=== PATIENT | female | born 1975 | race Hispanic/Latino ===

== ENCOUNTER 2020-09-05 07:25 | Outpatient (CLI) | payer BC, SELFPAY ==
--- NOTE | ~2020-09-05 | MM_ITS ---
EXAMINATION: MM screening [facility] BI w pete HISTORY: Screening TECHNIQUE: Craniocaudal and mediolateral oblique 3-D tomosynthesis images were obtained and synthetic 2-D images were generated. CAD analysis was submitted and interpreted. COMPARISON: Comparison to multiple prior studies sequentially, with oldest reviewed study dated 05/22. BREAST PARENCHYMAL COMPOSITION: Breast composed of scattered areas of fibroglandular density. FINDINGS: There is no evidence of suspicious mass, calcification, or architectural distortion to sugg est malignancy in either breast. There has been no suspicious interval change. IMPRESSION: 1. No mammographic evidence of malignancy. 2. Recommend routine screening mammography in one year. BI-RADS Category 1: Negative Reviewed, dictated and finalized at location A. SANDER
== END 2020-09-05 07:26 | disposition home or self-care (01) ==
LOC: ANHIMG 07:30
PROVIDERS: PCP Physician Assistant; Visit Provider Obstetrics & Gynecology
DX: Z12.31 Encounter for screening mammogram for malignant neoplasm of breast (principal)
CPT/HCPCS: 77063; 77067

== ENCOUNTER 2021-11-18 09:29 | Outpatient (CLI) | payer BC, SELFPAY ==
--- NOTE | ~2021-11-18 | MM_ITS ---
EXAMINATION: MM screening [facility] BI w pete HISTORY: Screening mammogram TECHNIQUE: Craniocaudal and mediolateral oblique 3-D tomosynthesis images were obtained and synthetic 2-D images were generated. CAD analysis was submitted and interpreted. COMPARISON: 09/05/2020, 08/20/2019, 07/17/2018 BREAST PARENCHYMAL COMPOSITION: There are scattered areas of fibroglandular density. FINDINGS: There is no suspicious mass, calcification, or architectural distortion to suggest malignan cy in either breast. There has been no suspicious interval change. IMPRESSION: 1. No mammographic evidence of malignancy. 2. Recommend routine screening mammography in one year. BI-RADS Category 1: Negative Reviewed, dictated and finalized at location A.
== END 2021-11-18 09:30 | disposition home or self-care (01) ==
LOC: ANHIMG 09:32
PROVIDERS: PCP Physician Assistant; Visit Provider Obstetrics & Gynecology
DX: Z12.31 Encounter for screening mammogram for malignant neoplasm of breast (principal)
CPT/HCPCS: 77063; 77067

== ENCOUNTER 2022-03-10 01:13 | Day surgery (SDC) | payer BC, SELFPAY ==
[2021-11-24 15:54] VITALS: BMI 24.0
[2022-03-10 08:21] VITALS: BP 114/58; PULSE 72; RESP 16; TEMP 36.4; O2SAT 100; BMI 23.0
[2022-03-10] MEDS: LACTATED RINGERS 1,000 ML 150 ML IV CONT (08:31)
--- NOTE | 2022-03-10 08:52 | PM.HPGS ---
History of Present Illness History of Present Illness Consent: Risks, benefits, and alternatives have been discussed and questions answered. Patient agrees to proceed with procedure. Chief complaint: neoplasm screening Narrative: Cee Stevens is a 47 year old female here for first screening colonoscopy Review of Systems Constitutional: Constitutional: Denies headache(s) and Denies weakness Eyes: Eyes: Denies blurry vision ENT: Reports Normal hearing present, Denies headache(s) and Denies neck pain Cardiovascular: Cardiovascular: Denies chest pain and Denies dyspnea Respiratory: Respiratory: Denies dyspnea Gastrointestinal: Gastrointestinal: Reports no additional gastrointestinal complaints Genitourinary: Genitourinary: Denies dysuria Musculoskeletal: Musculoskeletal: Denies neck pain Integumentary/Breasts: Skin/Breast: Denies dry skin Neurologic: Reports Normal hearing present, Denies headache(s) and Denies weakness Psychiatric: Psychiatric: Denies anxiety Endocrine: Endocrine: Denies change in body appearance Hematologic/Lymphatic: Hematologic/Lymphatic: Denies easy bleeding Allergic/Immunologic: Allergic/Immunologic: Denies urticaria PMF Past Medical History Medical History (Updated 03/10/22 @ 08:52 by Misael Cisneros MD) Asthma Colon cancer screening Liver mass Menopausal symptoms Vaginal delivery Vaginal discharge Surgical History Surgical History History of liver biopsy History of tubal ligation Previous section Family History Family History Mother Hypertension Family history of elevated blood lipids Father Family history of diabetes mellitus in first degree relative Family history of malignant neoplasm Grandparent Family history of coronary artery disease Social History Social History Smoking status: Never smoker Second hand tobacco smoke exposure: No Alcohol intake: never Substance use: never Substance use type: does not use Living arrangements: with family Spiritual care concerns: No Meds Home Medications and Allergies Home Medications Medication Instructions Recorded Confirmed Type albuterol sulfate 90 mcg/actuation 1 puff inhalation Q4H PRN 09/16/21 03/10/22 History aerosol inhaler Shortness Of Breath budesonide-formoterol HFA 80 2 puff inhalation Q12H 09/16/21 03/10/22 History mcg-4.5 mcg/actuation aerosol inhaler omeprazole 20 mg capsule,delayed 20 mg PO DAILY 11/24/21 03/10/22 History release Allergies Allergy/AdvReac Type Severity Reaction Status Date / Time No Known Allergies Allergy Mild Verified 03/10/22 08:20 Vital Signs Vital Signs - 24 hr 03/10/22 08:21 Temperature 97.6 F Pulse Rate 72 Respiratory Rate 16 Blood Pressure 114/58 L Pulse Oximetry 100 Oxygen Delivery Room Air Exam Const: General: comfortable and no acute distress HENMT: General nose exam: Normal nares present Eyes: General: appearance normal, both eyes and all related structures Neck: Neck: no JVD Resp: Auscultation: clear to auscultation bilaterally Cardio: Rate: regular rate Rhythm: regular rhythm GI: Inspection: non-distended GI Palp: Yes Soft to palpation Skin: General skin exam: normal color Neuro: General: gait normal Speech: normal speech Extrem: General: normal to inspection Psych: Mental Status: mental status grossly normal Assessment and Plan Assessment and plan (1) Colon cancer screening: Code(s): Z12.11 - Encounter for screening for malignant neoplasm of colon Status: Acute Assessment and Plan: colonoscopy
--- NOTE | 2022-03-10 08:52 | WPDANESEPPF ---
Anes - Initial Pre Proc Eval Procedure: Operation Date: 03/10/22 09:45 Proposed Procedures p Screening Colonoscopy - Misael Cisneros MD Date/Time: 03/10/22 08:52 Surgeon: Misael Cisneros MD Pre Op Diagnosis: neoplasm screening Patient Data Age: 47 Gender: F Height: 1.55 m Weight: 55.3 kg Last Vital Signs Temp 97.6 F 03/10/22 08:21 Pulse 72 03/10/22 08:21 Resp 16 03/10/22 08:21 BP 114/58 L 03/10/22 08:21 Pulse Ox 100 03/10/22 08:21 O2 Del Method Room Air 03/10/22 08:21 Allergies Allergy/AdvReac Type Severity Reaction Status Date / Time No Known Allergies Allergy Mild Verified 03/10/22 08:20 Home Medications Medication Instructions Recorded Confirmed Type albuterol sulfate 90 mcg/actuation 1 puff inhalation Q4H PRN 09/16/21 03/10/22 History aerosol inhaler Shortness Of Breath budesonide-formoterol HFA 80 2 puff inhalation Q12H 09/16/21 03/10/22 History mcg-4.5 mcg/actuation aerosol inhaler omeprazole 20 mg capsule,delayed 20 mg PO DAILY 11/24/21 03/10/22 History release Patient hx anesthesia problems: none Family hx anesthesia problems: none Results Review: All pre-operative results and documents have been reviewed as part of the pre-operative evaluation. [facility] Past Medical History Medical History (Updated 03/10/22 @ 08:52 by Misael Cisneros MD) Asthma Colon cancer screening Liver mass Menopausal symptoms Vaginal delivery Vaginal discharge Surgical History Surgical History History of liver biopsy History of tubal ligation Previous section Family History Family History Mother Hypertension Family history of elevated blood lipids Father Family history of diabetes mellitus in first degree relative Family history of malignant neoplasm Grandparent Family history of coronary artery disease Social History Social History Smoking status: Never smoker Second hand tobacco smoke exposure: No Alcohol intake: never Substance use: never Substance use type: does not use Living arrangements: with family Spiritual care concerns: No Anes - Eval Final PreProcedure Day of Procedure 03/10/22 08:52 Patient weight: normal Heart: regular rate and rhythm Lungs: clear to auscultation Airway: Mallampati scale class II Neurological: alert and oriented Last oral intake: >/= 8 hours ASA classification: II Emergent: no Anesthetic plan: proceed Anesthesia type and monitoring: general GIVS and standard monitoring Results Review: All pre-operative results and documents have been reviewed as part of the pre-operative evaluation. Informed Consent: The patient's anesthetic plan and its attendant risks and benefits were discussed with the patient/family/POA. Questions were solicited and answers provided to the satisfaction of the patient/family/POA.
[2022-03-10 09:17] VITALS: BP 83/48; PULSE 68; RESP 18; O2SAT 98
[2022-03-10 09:27] VITALS: BP 91/57; PULSE 65; RESP 18; O2SAT 100
[2022-03-10 09:37] VITALS: BP 105/67; PULSE 59; RESP 17; O2SAT 99
== END 2022-03-10 09:45 | disposition home or self-care (01) ==
PROVIDERS: PCP Physician Assistant; Visit Provider Internal Medicine Gastroenterology
PROC: 0DJD8ZZ Inspection of Lower Intestinal Tract, Via Natural or Artificial Opening Endoscopic (ICD-10-PCS; CPT 45378; principal; 2022-03-10 09:45)
DX: Z12.11 Encounter for screening for malignant neoplasm of colon (principal); K64.8 Other hemorrhoids; Z79.51 Long term (current) use of inhaled steroids; J45.909 Unspecified asthma, uncomplicated
CPT/HCPCS: 45378; J2704; J7120

== ENCOUNTER 2022-07-12 16:17 | Outpatient (CLI) | payer BC, SELFPAY ==
--- NOTE | ~2022-07-12 | US_ITS ---
EXAMINATION: US pelvic complete w TV DATE: 07/12/2022 17:10 INDICATION: Left lower quadrant pain Comparison:Ultrasound dated 01/31/2016 TECHNIQUE: Multiple transabdominal and endovaginal sonographic images of the pelvis performed. FINDINGS: The uterus measures 5.1 x 2.3 x 3.8 cm. The endometrial complex measures 3 mm. The right ovary measures 1.9 x 0.8 x 0.9 cm and the left ovary measures 1.9 x 0.8 x 0.9 cm. There ar e small follicles in each ovary. Normal doppler signal in both ovaries. There is no free fluid in the pelvis. There are no abnormal masses seen on either side. IMPRESSION: 1. Unremarkable pelvic ultrasound. Reviewed, dictated and finalized at location B. PULLER
== END 2022-07-12 16:18 | disposition home or self-care (01) ==
LOC: ANHIMG 16:20
PROVIDERS: PCP Physician Assistant; Visit Provider Obstetrics & Gynecology
DX: R10.32 Left lower quadrant pain (principal)
CPT/HCPCS: 76830; 76856

== ENCOUNTER 2023-01-05 15:53 | Outpatient (CLI) | payer BC, SELFPAY ==
--- NOTE | ~2023-01-05 | MM_ITS ---
EXAMINATION: MM screening [facility] BI w pete HISTORY: Screening mammogram TECHNIQUE: Craniocaudal and mediolateral oblique 3-D tomosynthesis images were obtained and synthetic 2-D images were generated. CAD analysis was submitted and interpreted. COMPARISON: 11/18/2021, 09/05/2020, 08/20/2019 BREAST PARENCHYMAL COMPOSITION: There are scattered areas of fibroglandular density. FINDINGS: No suspicious mass, calcification, or architectural distortion are identified in either [place] ast to suggest malignancy. There has been no suspicious interval change. IMPRESSION: 1. No mammographic evidence of malignancy. 2. Recommend routine screening mammography in one year. BI-RADS Category 1: Negative Reviewed, dictated and finalized at location A.
== END 2023-01-05 15:54 | disposition home or self-care (01) ==
LOC: ANHIMG 15:56
PROVIDERS: PCP Physician Assistant; Visit Provider Obstetrics & Gynecology
DX: Z12.31 Encounter for screening mammogram for malignant neoplasm of breast (principal)
CPT/HCPCS: 77063; 77067

== ENCOUNTER 2024-02-07 16:07 | Outpatient (CLI) | payer BC, SELFPAY ==
--- NOTE | ~2024-02-07 | MM_ITS ---
EXAMINATION: MM screening [facility] BI w pete HISTORY: Screening TECHNIQUE: Craniocaudal and mediolateral oblique 3-D tomosynthesis images were obtained and synthetic 2-D images were generated. CAD analysis was submitted and interpreted. COMPARISON: Comparison to multiple prior studies sequentially, with oldest reviewed study dated 06/23. BREAST PARENCHYMAL COMPOSITION: Not dense: There are scattered areas of fibroglandular density. FINDINGS: There is no evidence of suspicious mass, calcification, or architectural distortion to sugg est malignancy in either breast. There has been no suspicious interval change. IMPRESSION: 1. No mammographic evidence of malignancy. 2. Recommend routine screening mammography in one year. BI-RADS Category 1: Negative Reviewed, dictated and finalized at location B.
== END 2024-02-07 16:08 | disposition home or self-care (01) ==
LOC: ANHIMG 16:09
PROVIDERS: PCP Physician Assistant; Visit Provider Obstetrics & Gynecology
DX: Z12.31 Encounter for screening mammogram for malignant neoplasm of breast (principal)
CPT/HCPCS: 77063; 77067

== ENCOUNTER 2024-03-11 12:47 | Emergency (ER) | payer BC, SELFPAY ==
[2024-03-11 12:48] VITALS: BP 138/72; PULSE 61; RESP 18; TEMP 36.4; O2SAT 100
[2024-03-11 12:54] VITALS: RESP 18; O2SAT 100
[2024-03-11 12:58] VITALS: BP 150/88; PULSE 62; RESP 18; O2SAT 100
--- NOTE | 2024-03-11 13:15 | ED.GENADULT ---
HPI - General Adult General Chief complaint: Environmental Exposure Stated complaint: inhlaed bleach while cleaning Time Seen by Provider: 03/11/24 12:51 History of Present Illness HPI narrative: Patient is a 49-year-old female who presents ER with concerns about bleach exposure. 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 It caused her eyes to feel foggy and burned her nostrils and back of her throat. No ingestion of the mixture. Patient has history of asthma. No wheezing. No dyspnea at this time. Related Data Home Medications Medication Instructions Recorded Confirmed albuterol sulfate 90 mcg/actuation 1 puff inhalation Q4H PRN 09/16/21 03/10/22 aerosol inhaler Shortness Of Breath budesonide-formoterol HFA 80 2 puff inhalation Q12H 09/16/21 03/10/22 mcg-4.5 mcg/actuation aerosol inhaler omeprazole 20 mg capsule,delayed 20 mg PO DAILY 11/24/21 03/10/22 release Allergies Allergy/AdvReac Type Severity Reaction Status Date / Time No Known Allergies Allergy Mild Verified 03/11/24 12:59 Review of Systems Review of Systems: All systems reviewed & are unremarkable except as noted in HPI and below Constitutional: Constitutional: Reports no additional constitutional complaints ENT: Reports system reviewed and no additional complaints, except as documented Cardiovascular: Cardiovascular: Reports no additional cardiovascular complaints Respiratory: Respiratory: Reports no additional respiratory complaints [facility] Past Medical History Medical History Asthma Colon cancer screening Liver mass Menopausal symptoms Vaginal delivery Vaginal discharge Surgical History Surgical History History of liver biopsy History of tubal ligation Previous section Family History Family History Mother Hypertension Family history of elevated blood lipids Father Family history of diabetes mellitus in first degree relative Family history of malignant neoplasm Grandparent Family history of coronary artery disease Social History Social History Smoking status: Never smoker Second hand tobacco smoke exposure: No Alcohol intake: never Substance use: never Substance use type: does not use Do You Feel Safe in your Home?: Yes Lack of Transportation: No Lack of Food: Never True Current Housing: I Have Housing Concerned About Future Housing: No Difficulty Paying Gas/Electric Bills: No Difficulty Paying for Meds: No Currently Unemployed: No Education: High School Diploma/GED Difficulty w/ Childcare or Family Care: No Living arrangements: with family Spiritual care concerns: No Exam Narrative: GENERAL: Well-appearing, well-nourished, and in no acute distress. HEAD: Normocephalic, atraumatic. ENT: Mucous membranes moist. Normal nose. Normal posterior oropharynx. CHEST: Clear to auscultation. No respiratory distress. HEART: Regular rate and rhythm. Normal peripheral pulses. EXTREMITIES: Normal range of motion. No edema. SKIN: Warm, dry, no rash. NEURO: No focal deficits. Alert and oriented x3. PSYCH: Normal mood and affect. Course Course Emergency Course: Patient given reassurance. She seems to have a fair amount of anxiety about the situation. No wheezing or cough to indicate chemical pneumonitis. Vital Signs Vital signs: Vital Signs Temperature 97.6 F 03/11/24 12:48 Pulse Rate 61 03/11/24 12:48 Respiratory Rate 18 03/11/24 12:48 Blood Pressure 138/72 03/11/24 12:48 Pulse Oximetry 100 03/11/24 12:48 Oxygen Delivery Room Air 03/11/24 12:48 Temperature 97.6 F 03/11/24 12:48 Pulse Rate 62 03/11/24 12:58 Respiratory Rate 18 03/11/24 12:58 Blood Pr
[2024-03-11 13:42] VITALS: BP 113/89; PULSE 62; RESP 18; O2SAT 100
== END 2024-03-11 13:44 | disposition home or self-care (01) ==
LOC: ANHED 13:32
PROVIDERS: Emergency Provider Emergency Medicine; PCP Physician Assistant
DX: T54.91XA Toxic effect of unspecified corrosive substance, accidental (unintentional), initial encounter (principal); F41.9 Anxiety disorder, unspecified; J45.909 Unspecified asthma, uncomplicated
CPT/HCPCS: 99281

== ENCOUNTER 2024-11-15 09:54 | Emergency (ER) | payer BC, SELFPAY ==
[2024-11-15] VITALS (10 sets, daily range): BP systolic 103–152; BP diastolic 49–101; PULSE 54–70; RESP 10–20; TEMP 36.2; O2SAT 97–100
--- NOTE | ~2024-11-15 | XR_ITS ---
EXAMINATION: XR chest 2V 11/15/2024 11:28 INDICATION: Chest pain PROCEDURE: 2 view chest COMPARISON: Comparison to multiple prior studies sequentially, with oldest reviewed study dated 01/2012. FINDINGS: The lungs are clear. The cardiomediastinal silhouette is within normal limits. There are no pleural effusions. There is no pneumothorax suspected. IMPRESSION: 1: NO ACUTE CARDIOPULMONARY DISEASE. Reviewed, dictated and finalized at location A.
--- NOTE | 2024-11-15 09:55 | ECG_ITS ---
Test Date: 2024-11-15 10:03:10 Measurements Intervals [place] Rate: 57 P: 53 NV: 144 QRS: -15 QRSD: 94 T: 28 QT: 422 QTc: 411 Interpretive Statements SINUS BRADYCARDIA No previous ECG available for comparison Electronically Signed On 11-15-2024 11:48:25 CDT by Saleem Nuno M.D.
[2024-11-15 10:21] LABS: Basophils Absolute Auto 0.1 K/mm3 (0.0-0.1); Basophils Percent Auto 0.6 % (0.2-1.2); Eosinophils Absolute Auto 0.1 K/mm3 (0-0.3); Eosinophils Percent Auto 1.7 % (0-4.4); Hematocrit 46.6 % (37.0-47.0); Hemoglobin 15.2 g/dL (12.0-15.0); Immature Granulocyte Absolute 0.02 K/mm3 (0.00-0.031); Immature Granulocyte Percent A 0.2 % (0-0.5); Lymphocytes Absolute Auto 3.23 K/mm3 (0.9-3.2); Lymphocytes Percent Auto 38.9 % (18.3-44.2); Mean Corpuscular HGB Conc 32.6 g/dl (32-36); Mean Corpuscular Hemoglobin 29.5 pg (26-34); Mean Corpuscular Volume 90.3 fl (80-100); Mean Platelet Volume 11.1 fl (7.4-10.4); Monocytes Absolute Auto 0.4 K/mm3 (0.1-0.6); Monocytes Percent Auto 5.2 % (2.6-8.5); Neutrophils Absolute Auto 4.4 K/mm3 (1.3-6.7); Neutrophils Percent Auto 53.4 % (45.5-73.1); Platelet Count Result 280 k/mm3 (150-375); Red Blood Count 5.16 M/mm3 (4.2-5.4); Red Cell Distribution Width 12.2 % (11.5-14.5); White Blood Count 8.3 K/mm3 (4.5-10.0)
[2024-11-15 10:31] LABS: Alanine Aminotransferase 28 U/L (6-35); Albumin Level 5.2 g/dL (3.5-5.1); Alkaline Phosphatase 126 U/L (38-126); Anion Gap 14 mmol/L (4-12); Aspartate Amino Transferase 35 U/L (14-36); Blood Urea Nitrogen 13 mg/dL (7-17); Calcium 9.8 mg/dL (8.4-10.2); Carbon Dioxide 27 mmol/L (22-30); Chloride 101 mmol/L (98-107); Estimated CRCL calculation 57 ml/min; Estimated Glomerular Filt Rate > 60; Glucose 97 mg/dL (65-110); Lipase 129 U/L (23-300); Potassium 3.6 mmol/L (3.4-5.0); Sodium 142 mmol/L (137-145)
[2024-11-15 10:33] LABS: Partial Thromboplastin Time 27.8 Seconds (22.3-36.8)
[2024-11-15] MEDS: ASPIRIN 81 MG CHEWABLE TABLET 324 MG PO (10:38)
[2024-11-15 10:42] LABS: Troponin I < 0.012 ng/mL (0.000-0.034)
--- OUTSIDE RECORDS SUMMARY | 2024-11-15 10:54 | XMS_ITS | Clinical Summary ---
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 Name Role Phone Leonie Moreno Primary Care Provider [phone] Julio César Ribeiro MD Unavailable [phone] Allergies Active Allergy Reactions Criticality Noted Date Comments Propofol Other (See comments) Low 06/26/2019 Hard to awaken after anesthesia/nausea Medications famotidine (PEPCID) 20 mg tablet Take 1 tablet (20 mg total) by mouth 2 (two) times a day Active albuterol HFA (PROVENTIL HFA,VENTOLIN HFA,PROAIR HFA) 90 mcg/actuation inhaler INHALE 2 PUFFS BY MOUTH EVERY 6 HOURS NEEDED FOR WHEEZING OR SHORTNESS OF BREATH 54 g 1 4 Active omeprazole (PriLOSEC) 40 mg capsule TAKE 1 CAPSULE(40 MG) BY MOUTH DAILY 90 capsule 1 4 Active rosuvastatin (CRESTOR) 10 mg tabletIndications: Mixed hyperlipidemia Take 1 tablet (10 mg total) by mouth daily 90 tablet 5 01/17/20 25 Active Active Problems Problem Noted Date Diagnosed Date Cigarette smoker 02/06/2024 Assessment & Plan (02/06/2024 1:01 PM CDT): Encouraged complete cessation and even socially. Fatigue 02/06/2024 Assessment & Plan (02/06/2024 1:03 PM CDT): Probably multifactorial. Check labs and followup to re-evaluate Other acne 06/11/2023 Assessment & Plan (06/11/2023 12:15 AM CDT): Persistent acne that may be a secondary infection at this point. Will send doxy Encouraged to stop picking at the area If symptoms worsen may consider starting topical BMI 24.0-24.9, adult 06/11/2023 Assessment & Plan (02/06/2024 1:01 PM CDT): Weight/BMI is in healthy range. Continue healthy lifestyle to maintain. Assessment & Plan (06/11/2023 12:17 AM CDT): Weight/BMI is in healthy range. Continue healthy lifestyle to maintain. Diabetes mellitus screening 01/02/2023 Assessment & Plan (02/06/2024 1:01 PM CDT): Check labs Assessment & Plan (01/02/2023 9:46 PM CDT): Check labs Mixed hyperlipidemia 06/17/2022 Assessment & Plan (02/06/2024 1:01 PM CDT): Encouraged patient to follow low fat/low chol diet like the Mediterranean diet. Increase good fats in the diet. Increase exercise. Monitor labs as needed. Assessment & Plan (06/11/2023 12:14 AM CDT): Encouraged patient to follow low fat/low chol diet like the Mediterranean diet. Increase good fats in the diet. Increase exercise. Monitor labs as needed. Assessment & Plan (01/02/2023 9:45 PM CDT): Encouraged patient to follow low fat/low chol diet like the Mediterranean diet. Increase good fats in the diet. Increase exercise. Monitor labs as needed. Assessment & Plan (06/17/2022 10:55 AM CDT): Encouraged patient to follow low fat/low chol diet like the Mediterranean diet. Increase good fats in the diet. Increase exercise. Monitor labs as needed. History of 2019 novel coronavirus disease (COVID -19) 05/28/2021 Overview (06/16/2021): 05/2021 Assessment & Plan (06/04/2021 6:30 PM CDT): We discussed disease progression. We discussed phone/video visits are limited in diagnostic capability. She declines to report to the er now for cardiac workup. She was advised to remain on quarantine for the next week. We discussed pursuing heart monitor, labs, ekg if palpitations aren't improving. She requests an antibiotic for sinus congestion. We discussed that this is also part of the disease process, and if viral in etiology the antibiotic will not be effective. However will attempt the zpack to assist her in symptom relief. Assessment & Plan (05/28/2021 1:58 PM CDT): Cee was advised given chest tightness and symptoms of anxiety/possible palpitations that an in person exam with vitals and further workup would be advisable. She was given information for the [facility] in [place] and advised to report there today before 5pm. We did discuss monoclonal antibody treatment, and she does want to pursue this further however we will await results of appt with the Resp Clinic prior to initiating. Anxiety 05/28/2021 Assessment & Plan (06/25/2021 3:18 PM CDT): Cee was advised given chest tightness and symptoms of anxiety/possible palpitations that an in person exam with vitals and further workup would be advisable. She was given information for the [facility] in [place] and advised to report there today before 5pm. We did discuss monoclonal antibody treatment, and she does want to pursue this further however we will await results of appt with the Resp Clinic prior to initiating. OHARA (dyspnea on exertion) 05/28/2021 Assessment & Plan (06/25/2021 3:18 PM CDT): Cee was advised given chest tightness and symptoms of anxiety/possible palpitations that an in person exam with vitals and further workup would be advisable. She was given information for the [facility] in [place] and advised to report there today before 5pm. We did discuss monoclonal antibody treatment, and she does want to pursue this further however we will await results of appt with the Resp Clinic prior to initiating. History of asthma 05/28/2021 Assessment & Plan (06/25/2021 3:18 PM CDT): Cee was advised given chest tightness and symptoms of anxiety/possible palpitations that an in person exam with vitals and further workup would be advisable. She was given information for the [facility] in [place] and advised to report there today before 5pm. We did discuss monoclonal antibody treatment, and she does want to pursue this further however we will await results of appt with the Resp Clinic prior to initiating. B12 deficiency 04/05/2021 Assessment & Plan (02/06/2024 1:01 PM CDT): Recheck labs as may contribute to hair changes Assessment & Plan (06/11/2023 12:14 AM CDT): Supplement Assessment & Plan (01/02/2023 9:45 PM CDT): Supplement Assessment & Plan (04/05/2021 7:32 PM CDT): Check labs Left sided sciatica 05/03/2020 Assessment & Plan (05/03/2020 1:16 PM CDT): This is a significant, separately identifiable problem that was evaluated and managed on the same day as the wellness exam Encouraged NSAIDS (if able to safely tolerate) or Tylenol. Topical preparations like Lidocaine patches, Biofreeze, ICYHOT etc as needed. Heat, stretching Avoid long periods of sitting/laying. Encouraged PT. Followup if has any problems controlling bowels or bladder or if sxs worsen. Breast cancer screening by mammogram 05/03/2020 Assessment & Plan (01/02/2023 9:45 PM CDT): Patient has mammogram scheduled Assessment & Plan (06/17/2022 10:54 AM CDT): Mammogram order provided Assessment & Plan (05/03/2020 1:17 PM CDT): Mammogram order provided BMI 26.0-26.9,adult 05/03/2020 Assessment & Plan (11/12/2024 3:45 PM CDT): Weight/BMI is in healthy range. Continue healthy lifestyle to maintain. Assessment & Plan (05/03/2020 1:17 PM CDT): Obesity is unchanged. Discussed the patient's BMI. The BMI is above average. BMI management plan is completed. BMI Follow-up includes: nutrition counseling, exercise counseling and education provided. 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 06/26/2019 Assessment & Plan (02/06/2024 1:01 PM CDT): Continue per hepatology at [facility] Assessment & Plan (06/11/2023 12:14 AM CDT): Continue to follow with [facility] hepatology. Assessment & Plan (04/05/2021 7:33 PM CDT): Continues to follow with hepatology annually Assessment & Plan (05/03/2020 1:16 PM CDT): Continue per specialist. Other fatigue 02/11/2019 Assessment & Plan (01/02/2023 9:45 PM CDT): Probably multifactorial. Check labs and followup to re-evaluate Assessment & Plan (04/05/2021 7:36 PM CDT): Probably multifactorial. Check labs and followup to re-evaluate Assessment & Plan (05/03/2020 1:17 PM CDT): Probably multifactorial. Check labs and followup to re-evaluate Assessment & Plan (02/11/2019 10:29 PM CDT): Probably multifactorial. Check labs and followup to re-evaluate Annual physical exam 02/11/2019 Assessment & Plan (02/06/2024 1:01 PM CDT): Encouraged healthy lifestyle, good nutrition and exercise. Encouraged Calcium and Vitamin D and weight bearing exercise for bone health. Reviewed immunizations Reviewed age appropirate screenings. Assessment & Plan (01/02/2023 9:45 PM CDT): Encouraged healthy lifestyle, good nutrition and exercise. Encouraged Calcium and Vitamin D and weight bearing exercise for bone health. Reviewed immunizations Reviewed age appropirate screenings. Assessment & Plan (06/17/2022 10:54 AM CDT): Encouraged healthy lifestyle, good nutrition and exercise. Encouraged Calcium and Vitamin D and weight bearing exercise for bone health. Reviewed immunizations Reviewed age appropirate screenings. Assessment & Plan (05/03/2020 1:17 PM CDT): Encouraged healthy lifestyle, good nutrition and exercise. Encouraged Calcium and Vitamin D and weight bearing exercise for bone health. Reviewed immunizations Reviewed age appropirate screenings. Assessment & Plan (02/11/2019 10:30 PM CDT): Encouraged healthy lifestyle, good nutrition and exercise. Encouraged Calcium and Vitamin D and weight bearing exercise for bone health. Reviewed immunizations Reviewed age appropirate screenings. Gastroesophageal reflux disease without esophagi tis 11/21/2017 Assessment & Plan (02/06/2024 1:01 PM CDT): Continue Prilosec and Pepcid as needed Assessment & Plan (06/11/2023 12:14 AM CDT): Continue PPI p.r.n. Assessment & Plan (01/02/2023 9:45 PM CDT): GI symptoms/reflux symptoms seem to have increased. Restarted omeprazole. Recommend 40 mg daily 20 minutes before a meal and use Pepcid for breakthrough symptoms. If symptoms do not improve get controlled will need to consider seeing GI. Reviewed behavioral changes for treatment of GERD. Assessment & Plan (06/17/2022 10:54 AM CDT): This is a significant, separately identifiable problem that was evaluated and managed on the same day as the wellness exam Discussed GERD at length including anatomy, behavioral changes (raise HOB, meal timings), dietary changes and medication options. Reviewed risks, benefits alternatives, side effects and proper use. Followup if sxs worsen or has hematochezia or hematemeis. Will increase the omeprazole to 40 mg daily. May use Pepcid or Zantac p.r.n. if she has breakthrough symptoms. If after 2-3 months she still having symptoms breaking through will need to consider referral to GI. She is in agreement with the plan. Assessment & Plan (04/05/2021 7:33 PM CDT): Continue PPI Assessment & Plan (02/11/2019 10:28 PM CDT): Continue PPI Resolved Problems Problem Noted Date Diagnosed Date Resolved Date Need for vaccination 06/11/2023 024 Assessment & Plan (06/11/2023 12:14 AM CDT): Flu vaccine updated in the office BMI 24.0-24.9, adult 12/21/2022 023 Assessment & Plan (12/21/2022 11:51 AM CDT): Weight/BMI is in healthy range. Continue healthy lifestyle to maintain. Need for influenza vaccination 06/17/2022 06/11/2023 Assessment & Plan (06/17/2022 10:54 AM CDT): Flu vaccine updated in office BMI 23.0-23.9, adult 04/02/2021 023 Assessment & Plan (06/17/2022 10:54 AM CDT): Weight/BMI is in healthy range. Continue healthy lifestyle to maintain. Assessment & Plan (04/02/2021 7:19 AM CDT): Weight/BMI is in healthy range. Continue healthy lifestyle to maintain. Pharyngitis 01/07/2021 04/05/2021 Assessment & Plan (01/07/2021 10:56 AM CDT): Patient declines strep/covid 19 test Will start on amoxicillin Advised nsaid q6h prn fever/pain F/u in 72h if not improving, sooner if worsening Need for Tdap vaccination 02/11/2019 Assessment & Plan (02/11/2019 10:29 PM CDT): tdap updated in office Clavicle pain 02/11/2019 06/17/2022 Assessment & Plan (02/11/2019 10:29 PM CDT): This is a significant, separately identifiable problem that was evaluated and managed on the same day as the wellness exam Unexpected pain. Check xrays Neck pain 02/11/2019 06/17/2022 Assessment & Plan (04/05/2021 7:35 PM CDT): Chronic neck pain with some radicular symptoms. May use NSAIDs prn. Caution with Tylenol due to her liver sxs. Start PT. If sxs persist, may need additional imaging. Assessment & Plan (02/11/2019 10:29 PM CDT): This is a significant, separately identifiable problem that was evaluated and managed on the same day as the wellness exam Check xray clavicle. If negative. Recommend starting PT. Lipid screening 02/11/2019 06/17/2022 Assessment & Plan (04/05/2021 7:32 PM CDT): Check labs Assessment & Plan (05/03/2020 1:17 PM CDT): Check labs Assessment & Plan (02/11/2019 10:29 PM CDT): Check labs Diabetes mellitus screening 02/11/2019 06/17/2022 Assessment & Plan (04/05/2021 7:33 PM CDT): Check labs Assessment & Plan (05/03/2020 1:17 PM CDT): Check labs Assessment & Plan (02/11/2019 10:29 PM CDT): Check labs Immunity status testing 02/11/201905/23 Assessment & Plan (02/11/2019 10:29 PM CDT): Check titer. BMI 27.0-27.9,adult 01/25/2019 05/03/20 20 Assessment & Plan (01/25/2019 1:56 PM CDT): Weight/BMI is in healthy range. Continue healthy lifestyle to maintain. Encounters Date Type Department Care Team Description 11/12/2024 3:30 PM CDT Office Visit [address] [place] [phone] Leonie Moreno PA BMI 26.0-26.9,adult (Primary Dx); Mixed hyperlipidemia; Other fatigue 10/16/2024 Results Follow-Up [address] [place] [phone] Leonie Moreno PA Mixed hyperlipidemia (Primary Dx) 10/15/[address] [place] [phone] Leonie Moreno PA 10/04/[address] [place] [phone] Leonie Moreno PA from Last 3 Months Immunizations Immunization Administration Dates Next Due Influenza, Quadrivalent, Spl it, Preservative Free, Intramuscular 06/01/2023,06/17/2022,05/27/2020 Influenza, Trivalent, IM (MDV) 06/17/2021 Influenza, Trivalent, Preser vative Free, Intramuscular 06/08/2024,09/22/2017 Influenza, Unspecified 09/22/2021(Deferred: Vijaya ent Refused) Tdap 01/25/2019 Surgical History Surgery Date Site/Laterality Comments SD LIG/TRNSXJ FLP TUBE ABDL/ VAG APPR UNI/BI Tubal Ligation - (Added by TW Conv) SECTION LIVER BIOPSY Medical History Medical History Date Comments Personal history of other di seases of the respiratory system Personal history of asthma - (Added by TW Conv) Cervical spine disease Gastroesophageal reflux Family History Medical History Relation Name Comments Cancer Father Diabetes Father Hypertension Mother Heart disease Other 1 Heart Disease - (Added by TW Conv) Diabetes Other 2 Diabetes Mellit us - (Added by Conv) Relation Name Status Comments Father Mother Other 1 Other 2 Social History Tobacco Use Types Packs/Day Years Used Date Smoking Tobacco: Some Days Cigarettes 0.2 5.2 Started: 08/22/2019 Smokeless Tobacco: Never Alcohol Use Standard Drinks/Week Comments Yes 0 (1 standard drink = 0.6 oz pur e alcohol) AUDIT-C Answer Date Recorded Q1: How often do you have a drink containing alc ohol? 2-4 times a month 11/12/2024 Q2: How many drinks containi ng alcohol do you have on a typical day when you are drinking? 3 or 4 11/12/2024 Q3: How often do you have si x or more drinks on one occasion? 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 Not on file Not on file Obstetrics History Last Filed Vital Signs Vital Sign Reading Time Taken Comments Blood Pressure 122/68 11/12/2024 3:43 PM CDT Pulse 66 11/12/2024 3:43 PM CDT Temperature 36.5 C (97.7 F) 11/12/2024 3:43 PM CDT Respiratory Rate 16 06/01/2023 9:13 AM CDT Oxygen Saturation 98% 11/12/2024 3:43 PM CDT Inhaled Oxygen Concentration - - Weight 64.9 kg (143 lb) 11/12/2024 3:43 PM CDT Height 157.5 cm (5' 2 ) 11/12/2024 3:43 PM CDT Body Mass Index 26.16 11/12/2024 3:43 PM CDT Plan of Treatment Health Maintenance Due Date Last Done Comments Cervical Cancer Screening 1973 Hepatitis C Screening 1973 Hepatitis B Screening 1991 Pneumococcal vaccine <65 (1 of 2 - PCV) 1992 Zoster Vaccine (1 of 2) 2023 Covid-19 Vaccine (2023-2 5 season) 2024 06/22/2021, 10/28/2020 Regular Well Visit/Exam 18-64 02/05/2025, 12/21/2022, 06/17/2022, Additional history exists Breast Cancer Screening-Mammogram 02/06/2025 02/07/2024, 01/06/2023, 11/18/2021, Additional history exists Depression Screening 11/12/2025 11/12/2024, 02/06/2024, 06/01/2023, Additional history exists DTaP/Tdap/Td Vaccine (2 - Td or Tdap) 01/25/2029 01/25/2019 Colon Cancer Screening-Colonoscopy 03/10/20322021 Influenza Vaccine Completed 06/08/2024, , 06/17/2022, Additional history exists Procedures Procedure Name Priority Date/Time Associated Diagnosis Comments LIPID PANEL Routine 10/13/2024 8:27 AM FLIGHT READINESS TECHNICIAN Mixed hyperlipidemia VITAMIN B12 Routine 10/13/2024 8:25 AM FLIGHT READINESS TECHNICIAN B12 deficiency COMPREHENSIVE METABOLIC PANEL Routine 10/13/2024 8:25 AM FLIGHT READINESS TECHNICIAN Mixed hyperlipidemia HEMOGLOBIN A1C Routine 10/13/2024 8:25 AM FLIGHT READINESS TECHNICIAN Diabetes mellitus screening CBC WITH AUTO DIFFERENTIAL Routine 10/13/2024 8:25 AM FLIGHT READINESS TECHNICIAN Fatigue, unspecified type TSH Routine 10/13/2024 8:25 AM FLIGHT READINESS TECHNICIAN Fatigue, unspecified type HM MAMMOGRAPHY Routine 02/07/2024 8:33 AM CDT COLONOSCOPY Routine 03/10/2022 from Last 3 Months or Most Recently Relevant to Health Maintenance Results * (ABNORMAL) Lipid panel (10/13/2024 8:27 AM FLIGHT READINESS TECHNICIAN) Pathologist [facility] Cholesterol 223(H) <200 mg/dL [facility] HDL 75 > OR = 50 mg/dL [facility] Triglycerides 86 <150 mg/dL [facility] LDL 129(H) mg/dL (calc) [facility] Comment: Reference range: <100 Desirable range <100 mg/dL for primary prevention; <70 mg/dL for patients with CHD or diabetic patients with > or = 2 CHD risk factors. LDL-C is now calculated using the Rob-Artis calculation, which is a validated novel method providing better accuracy than the Friedewald equation in the estimation of LDL-C. Rob SS et al. AJ. 2013;310(19): 0765-5557 (http://education.[employer]/faq/WCN444) Chol/HDL ratio 3.0 <5.0 (calc) [facility] Non-HDL, (LDL+VLDL) 148(H) <130 mg/dL (calc) [facility] Comment: For patients with diabetes plus 1 major ASCVD risk factor, treating to a non-HDL-C goal of <100 mg/dL (LDL-C of <70 mg/dL) is considered a therapeutic option. Blood 10/13/2024 8:27 AM FLIGHT READINESS TECHNICIAN 10/13/2024 8:27 AM FLIGHT READINESS TECHNICIAN Narrative [facility] - 10/14/2024 5:49 AM FLIGHT READINESS TECHNICIAN FASTING:YES FASTING: YES us Leonie CUEVAS LAB BLOOD ORDERABLES Final Result [facility] [address] [phone] * CBC with auto differential (10/13/2024 8:25 AM FLIGHT READINESS TECHNICIAN) WBC 6.4 3.8 - 10.8 Thousand/u L [facility] RBC, POC 4.57 3.80 - 5.10 Million/uL [facility] Hgb 13.7 11.7 - 15.5 g/dL [facility] Hct 41.8 35.0 - 45.0 % [facility] MCV 91.5 80.0 - 100.0 fL [facility] MCH 30.0 27.0 - 33.0 pg [facility] MCHC 32.8 32.0 - 36.0 g/dL [facility] Comment: For adults, a slight decrease in the calculated MCHC value (in the range of 30 to 32 g/dL) is most likely not clinically significant; however, it should be interpreted with caution in correlation with other red cell parameters and the patient's clinical condition. Rdw 12.2 11.0 - 15.0 % [facility] Platelets 271 140 - 400 Thousand/u L [facility] MPV 12.0 7.5 - 12.5 fL [facility] Neutrophils, abs 3,462 1,500 - 7,800 cells/uL [facility] Lymphocytes, abs 2,387 850 - 3,900 cells/uL [facility] Monocyte abs 390 200 - 950 cells/uL [facility] Eosinophils, abs 109 15 - 500 cells/uL [facility] Basophils, abs 51 0 - 200 cells/uL [facility] Neutrophils 54.1 % [facility] Lymphocyte pct 37.3 % [facility] Monocytes 6.1 % [facility] Eosinophils 1.7 % [facility] Basophils 0.8 % [facility] Blood 10/13/2024 8:25 AM FLIGHT READINESS TECHNICIAN 10/13/2024 8:26 AM FLIGHT READINESS TECHNICIAN Narrative [facility] - 10/14/2024 9:37 AM FLIGHT READINESS TECHNICIAN FASTING:YES FASTING: YES Leonie CUEVAS LAB BLOOD ORDERABLES Final Result Performing Organization Address [facility] Co de Phone Number [facility] [address] [place] [address] * TSH (10/13/2024 8:25 AM FLIGHT READINESS TECHNICIAN) Pathologist [facility] TSH 1.80 mIU/L [facility] Comment: Reference Range > or = 20 Years 0.40-4.50 Ranges First trimester 0.26-2.66 Second trimester 0.55-2.73 Third trimester 0.43-2.91 Blood 10/13/2024 8:25 AM FLIGHT READINESS TECHNICIAN 10/13/2024 8:26 AM FLIGHT READINESS TECHNICIAN Narrative [facility] - 10/14/2024 9:37 AM FLIGHT READINESS TECHNICIAN FASTING:YES FASTING: YES Leonie CUEVAS LAB BLOOD ORDERABLES Final Result Performing Organization Address [facility] de Phone Number [facility] [address] [place] [address] * (ABNORMAL) Hemoglobin A1c (10/13/2024 8:25 AM FLIGHT READINESS TECHNICIAN) [facility] Hgb A1C 5.8(H) <5.7 % of total Hgb [facility] Comment: For someone without known diabetes, a hemoglobin A1c value between 5.7% and 6.4% is consistent with prediabetes and should be confirmed with a follow-up test. For someone with known diabetes, a value <7% indicates that their diabetes is well controlled. A1c targets should be individualized based on duration of diabetes, age, comorbid conditions, and other considerations. This assay result is consistent with an increased risk of diabetes. Currently, no consensus exists regarding use of hemoglobin A1c for diagnosis of diabetes for children. Blood 10/13/2024 8:25 AM FLIGHT READINESS TECHNICIAN 10/13/2024 8:26 AM FLIGHT READINESS TECHNICIAN Narrative [facility] - 10/14/2024 9:37 AM FLIGHT READINESS TECHNICIAN FASTING:YES FASTING: YES Leonie CUEVAS LAB BLOOD ORDERABLES Final Result [facility] [address] [place] [phone] * Vitamin B12 (10/13/2024 8:25 AM FLIGHT READINESS TECHNICIAN) Vitamin B12 1,027 200 - 1,100 pg/mL [facility] Blood 10/13/2024 8:25 AM FLIGHT READINESS TECHNICIAN 10/13/2024 8:26 AM FLIGHT READINESS TECHNICIAN Narrative [facility] - 10/14/2024 9:37 AM FLIGHT READINESS TECHNICIAN FASTING:YES FASTING: YES Leonie CUEVAS LAB BLOOD ORDERABLES Final Result [facility] [address] [place] [id number] * Comprehensive metabolic panel (10/13/2024 8:25 AM FLIGHT READINESS TECHNICIAN) Pathologist [facility] Glucose 91 65 - 99 mg/dL [facility] Comment: Fasting reference interval BUN 19 7 - 25 mg/dL [facility] Creatinine 0.76 0.50 - 1.03 mg/dL [facility] eGFR 95 > OR = 60 mL/min/1.7 3m2 [facility] BUN/creat ratio SEE NOTE: (calc) [facility] Comment: Not Reported: BUN and Creatinine are within reference range. Sodium 141 135 - 146 mmol/L [facility] Potassium, pl 4.3 3.5 - 5.3 mmol/L [facility] Chloride 105 98 - 110 mmol/L [facility] CO2 28 20 - 32 mmol/L [facility] Calcium 9.2 8.6 - 10.4 mg/dL [facility] Protein, sr 7.1 6.1 - 8.1 g/dL [facility] Albumin 4.2 3.6 - 5.1 g/dL [facility] GLOBULIN 2.9 1.9 - 3.7 g/dL (calc) [facility] Alb/glob ratio 1.4 1.0 - 2.5 (calc) [facility] Bilirubin, total 0.5 0.2 - 1.2 mg/dL [facility] Alk phos 103 37 - 153 U/L [facility] AST 14 10 - 35 U/L [facility] ALT (SGPT) 12 6 - 29 U/L [facility] Blood 10/13/2024 8:25 AM FLIGHT READINESS TECHNICIAN 10/13/2024 8:26 AM FLIGHT READINESS TECHNICIAN Narrative [facility] - 10/14/2024 9:37 AM FLIGHT READINESS TECHNICIAN FASTING:YES FASTING: YES Leonie CUEVAS LAB BLOOD ORDERABLES Final Result [facility] [address] [place] [address] * HM MAMMOGRAPHY (02/07/2024 8:33 AM CDT) Mammography Normal Historical Provider HEALTH MAINTENANCE Edited Result - Final * Colonoscopy (03/10/2022) Anatomical Region Laterality Modality Other Historical Provider ENDOSCOPY PROCEDURES Lore l Result from Last 3 Months or Most Recently Relevant to Health Maintenance Insurance [facility] Care 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
--- OUTSIDE RECORDS SUMMARY | 2024-11-15 10:54 | XMS_ITS | Clinical Summary ---
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 Gender Identity Not on file Sexual Orientation Not on file Plan of Treatment Health Maintenance Due Date Last Done Comments Hepatitis C Virus (HCV) Screening 1973 TdaP Immunization 1973 Hepatitis B Immunization (1 of 3 - 19+ 3-dose series) 1992 Pap Smear 1994 Cervical Cancer Screening (CCS) 2003 HPV/Cotest 2003 Colonoscopy 2018 Colorectal Cancer Screening 2018 Cologuard 2023 Immunochemical Fecal Occult Blood 2023 Mammogram 2023 Pneumococcal Immunization (5 0+ years) (1 of 1 - PCV) 2023 Zoster Immunization (1 of 2) 2023 Influenza Immunization (#1) 04/22/202405/23, 05/27/2020, 09/22/2017 SARS-COV-2 Immunization (3 - 2023- season) 2024 06/22/2021, 10/28/2020 Respiratory Syncytial Virus (RSV) Immunization (Adult) (1 - 1-dose 75+ series) 2048 Meningococcal Immunization (ACWY) Aged Out No longer eligible b ased on patient's age to complete this topic Pneumococcal Immunization Combined Aged Out No longer eligible b ased on patient's age to complete this topic Rotavirus Immunization Aged Out No lo nger eligible based on patient's age to complete this topic
--- OUTSIDE RECORDS SUMMARY | 2024-11-15 10:54 | XMS_ITS | Clinical Summary ---
Author Organization [facility] Address [address] [place] [address] Care Team Providers Care Dye Expert Name Role Phone Leonie Moreno Primary Care Provider [phone] Allergies No known active allergies Medications omeprazole EC 20 MG tablet Take 20 mg by mouth daily. Active ALBUTEROL IN Inhale 8.6 g into the lungs as needed. Active ASHLYNA 0.15-0.03 &0.01 MG tablet Take 1 tablet by mouth daily. 3 12/13/2018 Active Social History Tobacco Use Types Packs/Day Years Used Date Smoking Tobacco: Never Smokeless Tobacco: Never Alcohol Use Standard Drinks/Week Comments Yes 0 (1 standard drink = 0.6 oz pur e alcohol) socially Comments No Sex and Gender Information Value Date Recorded Sex Assigned at Not on file Legal Sex Female 12:52 PM CDT Gender Identity Not on file Sexual Orientation Not on file Last Filed Vital Signs Vital Sign Reading Time Taken Comments Blood Pressure 108/78 04/17/2019 1:04 PM CDT Pulse 56 04/17/2019 1:04 PM CDT Temperature 36.9 C (98.5 F) 04/17/2019 8:40 AM CDT Respiratory Rate 18 04/17/2019 1:04 PM CDT Oxygen Saturation 97% 04/17/2019 1:04 PM CDT Inhaled Oxygen Concentration - - Weight 67.1 kg (147 lb 14.9 oz) 04/17/2019 8:40 AM CDT Height 157.5 cm (5' 2 ) 04/17/2019 8:40 AM CDT Body Mass Index 27.06 04/17/2019 8:40 AM CDT Plan of Treatment Health Maintenance Due Date Last Done Comments Cervical Cancer Screening Pa p Smear (Age 30 to 64) Every 3 Years 1973 Colorectal Cancer Screening Colonoscopy (10 Years) 1973 Annual Physical 1976 Hepatitis C 1991 DTaP, Tdap and Td Vaccines ( 1 - Tdap) 1992 Hepatitis B Vaccines (1 of 3 - 19+ 3-dose series) 1992 Cervical Cancer Screening Pa p with HPV Testing (Age 30 to 64) Every 5 Years 2003 Cervical Cancer Screening with HPV 2003 Mammogram Screening 2013 Zoster Vaccines (1 of 2) 2023 COVID-19 Vaccine (2023-2 5 season) 2024 Influenza Adult (#1) 2024 Meningococcal B Vaccine Aged Out No l onger eligible based on patient's age to complete this topic Meningococcal Vaccine Aged Out No lonny mack eligible based on patient's age to complete this topic Pneumococcal Vaccine: Pediat rics (0 to 5 Years) and At-Risk Patients (6 to 64 Years) Aged Out No longer eligible b ased on patient's age to complete this topic RSV Immunizations Under 20 Months Aged Out No longer eligible based on patient's age to complete this topic Insurance [facility] Care Teams Dye Expert Relationship Specialty Start Date End Date Leonie Moreno PA [address] [facility] [address] [place] [address] PCP - General PHYSICIAN HOT DIP TINNING SUPERVISOR 04/13/19
--- OUTSIDE RECORDS SUMMARY | 2024-11-15 10:54 | XMS_ITS | Continuity of Care Document ---
Author Organization [facility] Address [address] [place] [address] [place] [address] Phone Care Team Providers Care Editor Map Name Role Phone Samaniego OD, Shankar Unavailable Unavailable Procedures Procedure Date Eye Exam & Treatment Refraction Advance Directives Directive Yes / No Effective Date File Name No Information Encounters Encounter Description Practice Location Reason(s) For Visit Diagnoses Date Provider Providers Copied on Encounter [facility], [address] [place] [address] [address], [place], [place], [id number], tel:[phone] [facility] No Information [phone] Samaniego OD Shankar. [address] , [address], [place], [address], [place]. tel:[phone] Family History Family Member Type Diagnosis Age At Onset No Information Payers Payer name Insurance type Covered constitution party ID Authoriza tililiam(s) [facility] Commercial CI [id number] Social History Type Description Quantity Date Captured Comments Sex Female Smoking Status No Information Chief Complaint And Reason For Visit No Information Reason For Referral Reason For Referral No Information History Of Present Illness Encounter Date Complaint History Of Prese nt Illness No Information Functional Status Date Functional Assessmen t No Information Instructions Date Instruction Additional Infor mation No Information Assessments Type Assessment Date No Information Patient Care Teams Name Effective Dates (start - stop) Status Members No Information
--- OUTSIDE RECORDS SUMMARY | 2024-11-15 10:54 | XMS_ITS | Referral Summary ---
Author Organization [facility] [address] Address [address] [place] [address] Care Team Providers Care Commercial Airline Pilot Name Role Phone Leonie Moreno Primary Care Provider [phone] Julio César Ribeiro MD Unavailable [phone] Encounters Date Type Department Care Team Description 11/12/2024 3:30 PM CDT Office Visit [facility] Medicine [address] [place] [address] [place] [phone] Leonie Moreno PA BMI 26.0-26.9,adult (Primary Dx); Mixed hyperlipidemia; Other fatigue 10/16/2024 Results Follow-Up [address] [place] [phone] Leonie Moreno PA Mixed hyperlipidemia (Primary Dx) 10/15/[address] [place] [phone] Leonie Moreno PA 10/04/2024 Telephone [facility] [address] [place] [address] Road [address] [place] [phone] Leonie Moreno PA from Last 3 Months Allergies Active Allergy Reactions Criticality Noted Date [...] advisable. She was given information for the [facility] Resp [facility] in [place] and advised to report there today before [...] advisable. She was given information for the [facility] Resp [facility] in [place] and advised to report there today before [...] advisable. She was given information for the [facility] in [place] and advised to report there today before [...] advisable. She was given information for the [facility] in [place] and advised to report there today before [...] 1:01 PM CDT): Continue per hepatology at [facility] Assessment & Plan (06/11/2023 12:14 AM CDT): Continue to follow with [facility] hepatology. Assessment & Plan (04/05/2021 7:33 PM [...] healthy range. Continue healthy lifestyle to maintain. 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 Not on file Not on file Last Filed Vital Signs [...] 11/12/2024 3:43 PM CDT Plan of Treatment Not on file Procedures Procedure Name Priority Date/Time Associated Diagnosis Comments LIPID PANEL Routine 10/13/2024 8:27 AM ROBOTIC MAINTENANCE TECHNICIAN Mixed hyperlipidemia VITAMIN B12 Routine 10/13/2024 8:25 AM ROBOTIC MAINTENANCE TECHNICIAN B12 deficiency COMPREHENSIVE METABOLIC PANEL Routine 10/13/2024 8:25 AM ROBOTIC MAINTENANCE TECHNICIAN Mixed hyperlipidemia HEMOGLOBIN A1C Routine 10/13/2024 8:25 AM ROBOTIC MAINTENANCE TECHNICIAN Diabetes mellitus screening CBC WITH AUTO DIFFERENTIAL Routine 10/13/2024 8:25 AM ROBOTIC MAINTENANCE TECHNICIAN Fatigue, unspecified type TSH Routine 10/13/2024 8:25 AM ROBOTIC MAINTENANCE TECHNICIAN Fatigue, unspecified type HM MAMMOGRAPHY Routine 02/07/2024 8:33 AM CDT COLONOSCOPY Routine 03/10/2022 from Last 3 Months or Most Recently Relevant to Health Maintenance Results * (ABNORMAL) Lipid panel (10/13/2024 8:27 AM ROBOTIC MAINTENANCE TECHNICIAN) Pathologist [facility] Cholesterol 223(H) <200 mg/dL [facility] [...] factors. LDL-C is now calculated using the Rob-Steff calculation, which is a validated novel method providing better accuracy than the Friedewald equation in the estimation of LDL-C. Rob DAY et al. AJ. 2013;310(19): 1876-9607 (http://education.AbbeyPost.Down [employer] Transportation/faq/QXP035) Chol/HDL ratio 3.0 <5.0 (calc) [facility] Non-HDL, (LDL+VLDL) 148(H) <130 mg/dL (calc) [facility] Comment: For patients with diabetes plus 1 major ASCVD risk factor, treating to a non-HDL-C goal of <100 mg/dL (LDL-C of <70 mg/dL) is considered a therapeutic option. Blood 10/13/2024 8:27 AM ROBOTIC MAINTENANCE TECHNICIAN 10/13/2024 8:27 AM ROBOTIC MAINTENANCE TECHNICIAN Narrative [facility] - 10/14/2024 5:49 AM ROBOTIC MAINTENANCE TECHNICIAN FASTING:YES FASTING: YES us Leonie CUEVAS LAB BLOOD ORDERABLES Final Result [facility] [address] [address] [address] * CBC with auto differential (10/13/2024 8:25 AM ROBOTIC MAINTENANCE TECHNICIAN) WBC 6.4 3.8 - 10.8 Thousand/u [...] [facility] Blood 10/13/2024 8:25 AM ROBOTIC MAINTENANCE TECHNICIAN 10/13/2024 8:26 AM ROBOTIC MAINTENANCE TECHNICIAN Narrative [facility] - 10/14/2024 9:37 AM ROBOTIC MAINTENANCE TECHNICIAN FASTING:YES FASTING: YES Leonie CUEVAS LAB BLOOD ORDERABLES Final Result Performing Organization Address [facility] de Phone Number [facility] [address] [place] [address] * TSH (10/13/2024 8:25 AM ROBOTIC MAINTENANCE TECHNICIAN) Pathologist [facility] TSH 1.80 mIU/L [facility] Comment: Reference Range > or = 20 Years 0.40-4.50 Ranges First trimester 0.26-2.66 Second trimester 0.55-2.73 Third trimester 0.43-2.91 Blood 10/13/2024 8:25 AM ROBOTIC MAINTENANCE TECHNICIAN 10/13/2024 8:26 AM ROBOTIC MAINTENANCE TECHNICIAN Narrative [facility] - 10/14/2024 9:37 AM ROBOTIC MAINTENANCE TECHNICIAN FASTING:YES FASTING: YES Leonie CUEVAS LAB BLOOD ORDERABLES Final Result Performing Organization Address [facility] de Phone Number [facility] [address] [place] [address] * (ABNORMAL) Hemoglobin A1c (10/13/2024 8:25 AM ROBOTIC MAINTENANCE TECHNICIAN) Hgb A1C 5.8(H) <5.7 % of total [...] diabetes for children. Blood 10/13/2024 8:25 AM ROBOTIC MAINTENANCE TECHNICIAN 10/13/2024 8:26 AM ROBOTIC MAINTENANCE TECHNICIAN Narrative [facility] - 10/14/2024 9:37 AM ROBOTIC MAINTENANCE TECHNICIAN FASTING:YES FASTING: YES Leonie CUEVAS LAB BLOOD ORDERABLES Final Result [facility] [address] [place] [address] * Vitamin B12 (10/13/2024 8:25 AM ROBOTIC MAINTENANCE TECHNICIAN) [facility] Vitamin B12 1,027 200 - 1,100 pg/mL [facility] Blood 10/13/2024 8:25 AM ROBOTIC MAINTENANCE TECHNICIAN 10/13/2024 8:26 AM ROBOTIC MAINTENANCE TECHNICIAN Narrative [facility] - 10/14/2024 9:37 AM ROBOTIC MAINTENANCE TECHNICIAN FASTING:YES FASTING: YES Leonie CUEVAS LAB BLOOD ORDERABLES Final Result [facility] [address] [place] [address] * Comprehensive metabolic panel (10/13/2024 8:25 AM ROBOTIC MAINTENANCE TECHNICIAN) Pathologist [facility] Glucose 91 65 - 99 mg/dL [...] [facility] Blood 10/13/2024 8:25 AM ROBOTIC MAINTENANCE TECHNICIAN 10/13/2024 8:26 AM ROBOTIC MAINTENANCE TECHNICIAN Narrative [facility] - 10/14/2024 9:37 AM ROBOTIC MAINTENANCE TECHNICIAN FASTING:YES FASTING: YES Leonie CUEVAS LAB BLOOD ORDERABLES Final Result [facility] [address] [place] [address] * MAMMOGRAPHY (02/07/2024 8:33 AM CDT) Mammography Normal Historical Provider HEALTH MAINTENANCE Edited Result - Final * Colonoscopy (03/10/2022) Anatomical Region Laterality Modality Other Historical Provider ENDOSCOPY PROCEDURES Lore l Result from Last 3 Months or Most Recently Relevant to Health Maintenance Insurance [facility] Care Teams Commercial Airline Pilot Relationship Specialty Start Date End Date Leonie Moreno PA [address] [place] [address] PCP - General Internal Medicine 12/20/18 Julio César Ribeiro MD [address] [place] [address] Consulting Physician Surgical Critical Care 07/05/19
[2024-11-15 11:56] LABS: INR 0.9; Prothrombin Time 12.9 Seconds (11.1-14.7)
--- OUTSIDE RECORDS SUMMARY | 2024-11-15 11:59 | XMS_ITS | Clinical Summary ---
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
--- OUTSIDE RECORDS SUMMARY | 2024-11-15 11:59 | XMS_ITS | Referral Summary ---
Author Organization [facility] [address] Address [address] [place] [address] Care Team Providers Care Saxophone Teacher Name Role Phone Leonie Moreno Primary Care Provider [phone] Julio César Ribeiro MD Unavailable [phone] Encounters Date Type Department Care Team Description 11/12/2024 3:30 PM CDT Office Visit [facility] Medicine [address] [place] [address] [place] [phone] Leonie Moreno PA BMI 26.0-26.9,adult (Primary Dx); Mixed hyperlipidemia; Other fatigue 10/16/2024 Results Follow-Up [address] [place] [phone] Leonie Moreno PA Mixed hyperlipidemia (Primary Dx) 10/15/[address] [place] [phone] Leonie Moreno PA 10/04/2024 Telephone [facility] [address] [place] [address] Road [address] [place] [phone] Leonie Moreno PA from Last 3 [...] advisable. She was given information for the [facility] in [place] and advised to report there today before [...] advisable. She was given information for the [facility] in [place] and advised to report there today before [...] advisable. She was given information for the [facility] in [place] and advised to report there today before [...] advisable. She was given information for the [facility] in [place] and advised to report there today before [...] 1:01 PM CDT): Continue per hepatology at [facility] Assessment & Plan (06/11/2023 12:14 AM CDT): Continue to follow with [facility] hepatology. Assessment & Plan (04/05/2021 7:33 PM [...] on file Legal Sex Female 8:40 AM HEALTH OUTCOMES LIAISON Gender Identity Not on file Sexual Orientation [...] Comments LIPID PANEL Routine 10/13/2024 8:27 AM HEALTH OUTCOMES LIAISON Mixed hyperlipidemia VITAMIN B12 Routine 10/13/2024 8:25 AM HEALTH OUTCOMES LIAISON B12 deficiency COMPREHENSIVE METABOLIC PANEL Routine 10/13/2024 8:25 AM HEALTH OUTCOMES LIAISON Mixed hyperlipidemia HEMOGLOBIN A1C Routine 10/13/2024 8:25 AM HEALTH OUTCOMES LIAISON Diabetes mellitus screening CBC WITH AUTO DIFFERENTIAL Routine 10/13/2024 8:25 AM HEALTH OUTCOMES LIAISON Fatigue, unspecified type TSH Routine 10/13/2024 8:25 AM HEALTH OUTCOMES LIAISON Fatigue, unspecified type HM MAMMOGRAPHY Routine 02/07/2024 8:33 AM CDT COLONOSCOPY Routine 03/10/2022 from Last 3 Months or Most Recently Relevant to Health Maintenance Results * (ABNORMAL) Lipid panel (10/13/2024 8:27 AM HEALTH OUTCOMES LIAISON) Pathologist [facility] Cholesterol 223(H) <200 mg/dL [facility] [...] LDL-C. Rob DAY et al. AJ. 2013;310(19): 3039-8846 (http://education.iStreamPlanet.Redicam/faq/GLC262) Chol/HDL ratio 3.0 <5.0 (calc) [facility] Non-HDL, (LDL+VLDL) 148(H) <130 mg/dL (calc) [facility] Comment: For patients with diabetes plus 1 major ASCVD risk factor, treating to a non-HDL-C goal of <100 mg/dL (LDL-C of <70 mg/dL) is considered a therapeutic option. Blood 10/13/2024 8:27 AM HEALTH OUTCOMES LIAISON 10/13/2024 8:27 AM HEALTH OUTCOMES LIAISON Narrative [facility] - 10/14/2024 5:49 AM HEALTH OUTCOMES LIAISON FASTING:YES FASTING: YES us Leonie CUEVAS LAB BLOOD ORDERABLES Final Result [facility] [address] [address] * CBC with auto differential (10/13/2024 8:25 AM HEALTH OUTCOMES LIAISON) WBC 6.4 3.8 - 10.8 Thousand/u L [...] [facility] Blood 10/13/2024 8:25 AM HEALTH OUTCOMES LIAISON 10/13/2024 8:26 AM HEALTH OUTCOMES LIAISON Narrative [facility] - 10/14/2024 9:37 AM HEALTH OUTCOMES LIAISON FASTING:YES FASTING: YES Leonie CUEVAS LAB BLOOD ORDERABLES Final Result Performing Organization Address [facility] de Phone Number [facility] [address] [place] [address] * TSH (10/13/2024 8:25 AM HEALTH OUTCOMES LIAISON) Pathologist [facility] TSH 1.80 mIU/L [facility] Comment: Reference Range > or = 20 Years 0.40-4.50 Ranges First trimester 0.26-2.66 Second trimester 0.55-2.73 Third trimester 0.43-2.91 Blood 10/13/2024 8:25 AM HEALTH OUTCOMES LIAISON 10/13/2024 8:26 AM HEALTH OUTCOMES LIAISON Narrative [facility] - 10/14/2024 9:37 AM HEALTH OUTCOMES LIAISON FASTING:YES FASTING: YES Leonie CUEVAS LAB BLOOD ORDERABLES Final Result Performing Organization Address [facility] de Phone Number [facility] [address] [place] [address] * (ABNORMAL) Hemoglobin A1c (10/13/2024 8:25 AM HEALTH OUTCOMES LIAISON) Hgb A1C 5.8(H) <5.7 % of total [...] diabetes for children. Blood 10/13/2024 8:25 AM HEALTH OUTCOMES LIAISON 10/13/2024 8:26 AM HEALTH OUTCOMES LIAISON Narrative [facility] - 10/14/2024 9:37 AM HEALTH OUTCOMES LIAISON FASTING:YES FASTING: YES Leonie CUEVAS LAB BLOOD ORDERABLES Final Result [facility] [address] [place] [address] * Vitamin B12 (10/13/2024 8:25 AM HEALTH OUTCOMES LIAISON) [facility] Vitamin B12 1,027 200 - 1,100 pg/mL [facility] Blood 10/13/2024 8:25 AM HEALTH OUTCOMES LIAISON 10/13/2024 8:26 AM HEALTH OUTCOMES LIAISON Narrative [facility] - 10/14/2024 9:37 AM HEALTH OUTCOMES LIAISON FASTING:YES FASTING: YES Leonie CUEVAS LAB BLOOD ORDERABLES Final Result [facility] [address] [place] [address] * Comprehensive metabolic panel (10/13/2024 8:25 AM HEALTH OUTCOMES LIAISON) Pathologist [facility] Glucose 91 65 - 99 mg/dL [facility] [...] [facility] Blood 10/13/2024 8:25 AM HEALTH OUTCOMES LIAISON 10/13/2024 8:26 AM HEALTH OUTCOMES LIAISON Narrative [facility] - 10/14/2024 9:37 AM HEALTH OUTCOMES LIAISON FASTING:YES FASTING: YES Leonie CUEVAS LAB BLOOD ORDERABLES Final Result [facility] [address] [place] [address] * MAMMOGRAPHY (02/07/2024 8:33 AM CDT) Mammography Normal Historical Provider HEALTH MAINTENANCE Edited Result - Final * Colonoscopy (03/10/2022) Anatomical Region Laterality Modality Other Historical Provider ENDOSCOPY PROCEDURES Lore l Result from Last 3 Months or Most Recently Relevant to Health Maintenance Insurance [facility] Care Teams Saxophone Teacher Relationship Specialty Start Date End Date Leonie Moreno PA [address] [place] [address] PCP - General Internal Medicine 12/20/18 Julio César Ribeiro MD [address] [place] [address] Consulting Physician Surgical Critical Care 07/05/19
--- OUTSIDE RECORDS SUMMARY | 2024-11-15 11:59 | XMS_ITS | Clinical Summary ---
Author Organization [facility] [address] Address [address] [place] [address] Care Team Providers Care C D Area Supervisor Name Role Phone Leonie Moreno Primary Care Provider [phone] Julio César Ribeiro MD Unavailable [phone] Allergies Active Allergy Reactions Criticality Noted [...] advisable. She was given information for the [facility] in [place] and advised to report there today before [...] advisable. She was given information for the [facility] in [place] and advised to report there today before [...] advisable. She was given information for the [facility] in [place] and advised to report there today before [...] advisable. She was given information for the [facility] in [place] and advised to report there today before [...] 1:01 PM CDT): Continue per hepatology at [facility] Assessment & Plan (06/11/2023 12:14 AM CDT): Continue to follow with [facility] hepatology. Assessment & Plan (04/05/2021 7:33 [...] Description 11/12/2024 3:30 PM CDT Office Visit [address] [place] [phone] Leonie Moreno PA BMI 26.0-26.9,adult (Primary Dx); Mixed hyperlipidemia; Other fatigue 10/16/2024 Results Follow-Up [address] [place] [phone] Leonie Moreno PA Mixed hyperlipidemia (Primary Dx) 10/15/[address] [place] [phone] Leonie Moreno PA 10/04/[address] [place] [phone] Leonie Moreno PA from Last 3 Months Immunizations Immunization Administration Dates Next Due Influenza, Quadrivalent, Spl it, Preservative Free, Intramuscular 06/01/2023,06/17/2022,05/27/2020 Influenza, Trivalent, IM (MDV) 06/17/2021 Influenza, Trivalent, Preser vative Free, Intramuscular 06/08/2024,09/22/2017 Influenza, Unspecified 09/22/2021(Deferred: Vijaya ent Refused) Tdap 01/25/2019 Surgical History Surgery Date Site/Laterality Comments NV LIG/TRNSXJ FLP TUBE ABDL/ VAG APPR UNI/BI [...] on file Legal Sex Female 8:40 AM [employer] Gender Identity Not on file Sexual Orientation [...] Comments LIPID PANEL Routine 10/13/2024 8:27 AM [employer] Mixed hyperlipidemia VITAMIN B12 Routine 10/13/2024 8:25 AM [employer] B12 deficiency COMPREHENSIVE METABOLIC PANEL Routine 10/13/2024 8:25 AM [employer] Mixed hyperlipidemia HEMOGLOBIN A1C Routine 10/13/2024 8:25 AM [employer] Diabetes mellitus screening CBC WITH AUTO DIFFERENTIAL Routine 10/13/2024 8:25 AM [employer] Fatigue, unspecified type TSH Routine 10/13/2024 8:25 AM [employer] Fatigue, unspecified type HM MAMMOGRAPHY Routine 02/07/2024 8:33 AM CDT COLONOSCOPY Routine 03/10/2022 from Last 3 Months or Most Recently Relevant to Health Maintenance Results * (ABNORMAL) Lipid panel (10/13/2024 8:27 AM [employer]) Pathologist [facility] Cholesterol 223(H) <200 mg/dL [facility] [...] LDL-C. Rob SS et al. AJ. 2013;310(19): 7707-7085 (http://education.Gamblino/faq/PGM675) Chol/HDL ratio 3.0 <5.0 (calc) [facility] Non-HDL, (LDL+VLDL) 148(H) <130 mg/dL (calc) [facility] Comment: For patients with diabetes plus 1 major ASCVD risk factor, treating to a non-HDL-C goal of <100 mg/dL (LDL-C of <70 mg/dL) is considered a therapeutic option. Blood 10/13/2024 8:27 AM [employer] 10/13/2024 8:27 AM [employer] Narrative [facility] - 10/14/2024 5:49 AM [employer] FASTING:YES FASTING: YES us Leonie CUEVAS LAB BLOOD ORDERABLES Final Result [facility] [address] [phone] * CBC with auto differential (10/13/2024 8:25 AM [employer]) WBC 6.4 3.8 - 10.8 Thousand/u L [...] [facility] Blood 10/13/2024 8:25 AM [employer] 10/13/2024 8:26 AM [employer] Narrative [facility] - 10/14/2024 9:37 AM [employer] FASTING:YES FASTING: YES Leonie CUEVAS LAB BLOOD ORDERABLES Final Result Performing Organization Address [facility] Co de Phone Number [facility] [address] [place] [address] * TSH (10/13/2024 8:25 AM [employer]) Pathologist [facility] TSH 1.80 mIU/L [facility] Comment: Reference Range > or = 20 Years 0.40-4.50 Ranges First trimester 0.26-2.66 Second trimester 0.55-2.73 Third trimester 0.43-2.91 Blood 10/13/2024 8:25 AM [employer] 10/13/2024 8:26 AM [employer] Narrative [facility] - 10/14/2024 9:37 AM [employer] FASTING:YES FASTING: YES Leonie CUEVAS LAB BLOOD ORDERABLES Final Result Performing Organization Address [facility] de Phone Number [facility] [address] [place] [address] * (ABNORMAL) Hemoglobin A1c (10/13/2024 8:25 AM [employer]) [facility] Hgb A1C 5.8(H) <5.7 % of total [...] diabetes for children. Blood 10/13/2024 8:25 AM [employer] 10/13/2024 8:26 AM [employer] Narrative [facility] - 10/14/2024 9:37 AM [employer] FASTING:YES FASTING: YES Leonie CUEVAS LAB BLOOD ORDERABLES Final Result [facility] [address] [place] [address] * Vitamin B12 (10/13/2024 8:25 AM [employer]) Vitamin B12 1,027 200 - 1,100 pg/mL [facility] Blood 10/13/2024 8:25 AM [employer] 10/13/2024 8:26 AM [employer] Narrative [facility] - 10/14/2024 9:37 AM [employer] FASTING:YES FASTING: YES Leonie CUEVAS LAB BLOOD ORDERABLES Final Result [facility] [address] [place] [address] * Comprehensive metabolic panel (10/13/2024 8:25 AM [employer]) Pathologist [facility] Glucose 91 65 - 99 mg/dL [facility] [...] [facility] Blood 10/13/2024 8:25 AM [employer] 10/13/2024 8:26 AM [employer] Narrative [facility] - 10/14/2024 9:37 AM [employer] FASTING:YES FASTING: YES Leonie CUEVAS LAB BLOOD ORDERABLES Final Result [facility] [address] [place] [address] * HM MAMMOGRAPHY (02/07/2024 8:33 AM CDT) Mammography Normal Historical Provider HEALTH MAINTENANCE Edited Result - Final * Colonoscopy (03/10/2022) Anatomical Region Laterality Modality Other Historical Provider ENDOSCOPY PROCEDURES Lore l Result from Last 3 Months or Most Recently Relevant to Health Maintenance Insurance [facility] Care Teams C D Area Supervisor Relationship Specialty Start Date End Date Leonie Moreno PA [address] [facility] [address] [place] [address] PCP - General Internal Medicine 12/20/18 Julio César Ribeiro MD [address] [place] [address] Consulting Physician Surgical Critical Care 07/05/19
--- OUTSIDE RECORDS SUMMARY | 2024-11-15 11:59 | XMS_ITS | Clinical Summary ---
Author Organization [facility] Address [address] [place] [address] Care Team Providers Care Maid Supervisor Name Role Phone Leonie Moreno Primary Care Provider [phone] Allergies No known active allergies Medications omeprazole [...] patient's age to complete this topic Insurance [facility] Care Teams Maid Supervisor Relationship Specialty Start Date End Date Leonie Moreno PA [address] [facility] [address] [place] [address] PCP - General PHYSICIAN AUTO BODY TECHNICIAN 04/13/19
--- OUTSIDE RECORDS SUMMARY | 2024-11-15 11:59 | XMS_ITS | Continuity of Care Document ---
Author Organization [facility] Address [address] [place] [address] [place] [address] Phone Care Team Providers Care Ground Operations Crew Member Name Role Phone Samaniego OD, Shankar Unavailable Unavailable Procedures Procedure Date Eye Exam & Treatment Refraction Advance Directives Directive Yes / No Effective Date File Name No Information Encounters Encounter Description Practice Location Reason(s) For Visit Diagnoses Date Provider Providers Copied on Encounter [facility], [address] [place] [address] [address], [place], [place], [id number], tel:[phone] [facility] No Information 9[address] Samaniego OD Shankar. [address] , [address], [place], [address], [place]. tel:[phone] Family History Family Member Type Diagnosis Age At Onset No Information Payers Payer name Insurance type Covered alliance party ID Authoriza tililiam(s) [facility] Commercial CI [id number] Social History Type Description Quantity Date Captured [...]
[2024-11-15 12:00] LABS: D Dimer < 0.27 ug/mL (<0.48)
--- NOTE | 2024-11-15 12:03 | ED.CHESTPAIN ---
HPI - Chest Pain General Chief Complaint: Chest Pain Stated Complaint: CP Time Seen by Provider: 11/15/24 10:28 Source: patient Mode of arrival: ambulatory Limitations: no limitations History of Present Illness HPI narrative: Patient is a 49-year-old female who presents the ED with report of chest pain. Patient reports around 9:20 a.m. this morning she began having a tightness/pressure in her midsternal chest. She contacted her son to bring her here. Reported having difficulty taking a deep breath at that time. States symptoms resolved upon arrival. Denies any current chest pain, shortness of breath. Does have history of acid reflux, but states this is not feel similar. Reports family history of heart disease in her sister. Denies pain or swelling in the legs, recent cough or cold symptoms, fevers. Related Data Home Medications ?Medication ?Instructions ?Recorded ?Confirmed ?Last Taken ?Type albuterol sulfate 90 mcg/actuation 1 puff inhalation Q4H PRN 09/16/21 11/15/24 03/09/22 History aerosol inhaler Shortness Of Breath omeprazole 20 mg capsule,delayed 20 mg PO DAILY 11/24/21 11/15/24 11/14/24 History release Allergies Allergy/AdvReac Type Severity Reaction Status Date / Time No Known Allergies Allergy Mild Verified 11/15/24 10:01 Review of Systems Review of Systems: All systems reviewed & are unremarkable except as noted in HPI. All systems reviewed & are unremarkable except as noted in HPI and below PMFSH Past Medical History Medical History Colon cancer screening Vaginal discharge Menopausal symptoms Liver mass Asthma Vaginal delivery Surgical History Surgical History History of liver biopsy History of tubal ligation Previous section Family History Family History Mother Hypertension Family history of elevated blood lipids Father Family history of diabetes mellitus in first degree relative Family history of malignant neoplasm Grandparent Family history of coronary artery disease Social History Social History Smoking status: Never smoker Second hand tobacco smoke exposure: No Alcohol intake: never Substance use: never Substance use type: does not use Do You Feel Safe in your Home?: Yes Lack of Transportation: No Lack of Food: Never True Current Housing: I Have Housing Concerned About Future Housing: No Difficulty Paying Gas/Electric Bills: No Difficulty Paying for Meds: No Currently Unemployed: No Education: High School Diploma/GED Difficulty w/ Childcare or Family Care: No Living arrangements: with family Spiritual care concerns: No Exam Narrative: GENERAL: Well appearing, well-nourished, non-toxic, in no acute distress. HEAD: Normocephalic, atraumatic. RESPIRATORY: Airway patent, respirations nonlabored. Clear to auscultation bilaterally, no rales, rhonchi, wheezing. CARDIOVASCULAR: Regular rate and rhythm without murmurs, rubs, or gallops. ABDOMINAL: Soft, nontender, nondistended. Normoactive BS. MUSCULOSKELETAL: Moves all extremities. No gross deformities. No peripheral edema. No calf tenderness. No chest wall tenderness to palpation. SKIN: Warm, dry, normal color. NEURO: A&O X3. Speech clear. PSYCHIATRIC: Slightly anxious appearing. Normal interaction. Course Vital Signs Vital signs: Vital Signs Temperature 97.2 F L 11/15/24 09:58 Pulse Rate 63 11/15/24 09:58 Respiratory Rate 16 11/15/24 09:58 Blood Pressure 152/101 H 11/15/24 09:58 Pulse Oximetry 97 11/15/24 09:58 Temperature 97.2 F L 11/15/24 09:58 Pulse Rate 64 11/15/24 13:46 Respiratory Rate 17 11/15/24 13:46 Blood Pressure 120/70 11/15/24 13:46 Pulse Oximetry 100 11/15/24 13:46 Oxygen Delivery Room Air 11/15/24 10:18 MDM - Chest Pain MDM Narrative Medical decision making narrative: Patient presented to ED with episode of midsternal chest pain that began this morning. Resolved by the time of my evaluation. Stable upon arrival. Patient is in no acute distress. Exam unremarkable. EKG w/o acute ischemic changes, showing sinus axel. Trop undetectable X2 D-dimer WNL CXR clear Remainder of basic laboratory studies unremarkable. HEART score = 2 based on FHx, HLD, age. Discussed lab and imaging findings, overall reassuring workup with patient and family. Feel she is safe for discharge home. Will refer patient to Cardiology for outpatient follow-up. Given strict return precautions. She agrees with plan. Feels comfortable going home. Discharged in stable condition. Medical Records Data Attestation: I reviewed the patient's medical records. Lab Data Attestation: I reviewed the patient's lab results. 11/15/24 10:12 11/15/24 10:12 Labs: Lab Results 11/15/24 11/15/24 Range/Units 10:12 13:14 WBC 8.3 (4.5-10.0) K/mm3 RBC 5.16 (4.2-5.4) M/mm3 Hgb 15.2 H (12.0-15.0) g/dL Hct 46.6 (37.0-47.0) % MCV 90.3 (80-100) fl MCH 29.5 (26-34) pg MCHC 32.6 (32-36) g/dl RDW 12.2 (11.5-14.5) % Plt Count 280 (150-375) k/mm3 MPV 11.1 H (7.4-10.4) fl Immature Gran % (Auto) 0.2 (0-0.5) % Neut % (Auto) 53.4 (45.5-73.1) % Lymph % (Auto) 38.9 (18.3-44.2) % [place] % (Auto) 5.2 (2.6-8.5) % Eos % (Auto) 1.7 (0-4.4) % Baso % (Auto) 0.6 (0.2-1.2) % Lymph # (Auto) 3.23 H (0.9-3.2) K/mm3 [place] # (Auto) 0.4 (0.1-0.6) K/mm3 Eos # (Auto) 0.1 (0-0.3) K/mm3 Baso # (Auto) 0.1 (0.0-0.1) K/mm3 Abs Immat Gran (auto) 0.02 (0.00-0.031) K/mm3 Absolute Neuts (auto) 4.4 (1.3-6.7) K/mm3 Absolute Nucleated RBC 0.000 (0.0-0.012) K/mm3 Nucleated RBC % 0.0 (0.0-0.2) % PT 12.9 (11.1-14.7) Seconds INR 0.9 APTT 27.8 (22.3-36.8) Seconds D-Dimer < 0.27 (<0.48) ug/mL Sodium 142 (137-145) mmol/L Potassium 3.6 (3.4-5.0) mmol/L Chloride 101 (98-107) mmol/L Carbon Dioxide 27 (22-30) mmol/L Anion Gap 14 H (4-12) mmol/L BUN 13 (7-17) mg/dL Creatinine 0.81 (0.7-1.0) mg/dL Estim Creat Clear Calc 57 ml/min Estimated GFR > 60 (59 - ) Glucose 97 (65-110) mg/dL Calcium 9.8 (8.4-10.2) mg/dL Total Bilirubin 1.0 (0.2-1.3) mg/dL AST 35 (14-36) U/L ALT 28 (6-35) U/L Alkaline Phosphatase 126 (38-126) U/L Troponin I < 0.012 < 0.012 (0.000-0.034) ng/mL Total Protein 9.0 H (6.3-8.2) g/dL Albumin 5.2 H (3.5-5.1) g/dL Lipase 129 (23-300) U/L Imaging Data Attestation: I personally reviewed and interpreted this imaging study as follows: Radiologist's impression: ITS Impressions Chest X-Ray 11/15/24 11:31 IMPRESSION: 1: NO ACUTE CARDIOPULMONARY DISEASE. ECG Data EKG #1: Attestation: I personally reviewed and interpreted this ECG as follows: ECG completion date: 11/15/24 ECG completion time: 10:03 EKG Interpretation: bradycardia (57), sinus rhythm, non-specific ST changes and other (Baseline artifact) Discharge Plan Discharge Clinical Impression: Atypical chest pain Patient Disposition: Home, Self-Care Condition: Stable Instructions: Antibiotic Form, Angina (ED), Chest Pain (ED), GERD (Gastroesophageal Reflux Disease) (ED) Additional Instructions: Your workup here was reassuring against a cardiac cause of your pain. Continue your home omeprazole. Recommend following with primary care doctor and Cardiology for further outpatient evaluation. Call office to make appointment. Return to the ED if you experience recurrent chest pain, difficulty breathing, unable to keep down food or drink, pain or swelling in legs, or any other symptoms of concern. Patient Language: Prydeinig Prescriptions: No Action albuterol sulfate 90 mcg/actuation HFA aerosol inhaler 1 puff inhalation Q4H PRN (Reason: Shortness Of Breath) omeprazole 20 mg capsule,delayed release(DR/EC) 20 mg PO DAILY Follow-up/Referrals: Saleem Nuno MD [Physician] - (CARDIOLOGY) Tiffanie,MASON Hadley [Primary Care Provider] - Time of Disposition: 12:13 Quality HEART score for chest pain patients History: slightly suspicious ECG: normal Age: > 45 and < 65 years Risk factors: 1 or 2 risk factors Troponin: < or = to 1x normal limit Heart score: 2
[2024-11-15 13:43] LABS: Troponin I < 0.012 ng/mL (0.000-0.034)
== END 2024-11-15 14:05 | disposition home or self-care (01) ==
PROVIDERS: Emergency Medicine; Emergency Provider Physician Assistant; PCP Physician Assistant
DX: R07.89 Other chest pain (principal); J45.909 Unspecified asthma, uncomplicated; R00.1 Bradycardia, unspecified
CPT/HCPCS: 36415; 71046; 80053; 83690; 84484; 85025; 85380; 85610; 85730; 93005; 99284; A9270

== ENCOUNTER 2025-02-07 15:38 | Outpatient (CLI) | payer BC, SELFPAY ==
--- NOTE | ~2025-02-07 | MM_ITS ---
EXAMINATION: MM screening [place] BI w pete HISTORY: Screening TECHNIQUE: Craniocaudal and mediolateral oblique 3-D tomosynthesis images were obtained and synthetic 2-D images were generated. CAD analysis was submitted and interpreted. COMPARISON: Comparison to multiple prior studies sequentially, with oldest reviewed study dated 06/23. BREAST PARENCHYMAL COMPOSITION: Not dense: There are scattered areas of fibroglandular density. FINDINGS: There is no evidence of suspicious mass, calcification, or architectural distortion to sugg est malignancy in either breast. There has been no suspicious interval change. IMPRESSION: 1. No mammographic evidence of malignancy. 2. Recommend routine screening mammography in one year. BI-RADS Category 1: Negative Reviewed, dictated and finalized at location A.
--- OUTSIDE RECORDS SUMMARY | 2025-02-07 15:41 | XMS_ITS | Continuity of Care Document ---
Author Organization [facility] Address [address] [place] [address] [place] [address] Phone Care Team Providers Care Lithographer Helper Name Role Phone Samaniego OD, Shankar Unavailable Unavailable Procedures Procedure Date Eye Exam & Treatment Refraction Advance Directives Directive Yes / No Effective Date File Name No Information Encounters Encounter Description Practice Location Reason(s) For Visit Diagnoses Date Provider Providers Copied on Encounter [facility], [address] [place] [address] [address], [place], [place], [address], tel:[phone] [facility] No Information 9201 0 Samaniego OD Shankar. [address] , [address], [place], [address], [place]. tel:[phone] Family History Family Member Type Diagnosis Age At Onset No Information Payers Payer name Insurance type Covered green party ID Authoriza tililiam(s) [facility] Commercial CI [id number] Social History Type Description Quantity Date Captured [...]
--- OUTSIDE RECORDS SUMMARY | 2025-02-07 15:41 | XMS_ITS | Clinical Summary ---
Author Organization [facility] Address [address] [place] [address] Care Team Providers Care Medical Professionals Name Role Phone Leonie Moreno Primary Care Provider [phone] Allergies No known active allergies Medications omeprazole EC 20 MG tablet Take 20 mg by mouth daily. Active ALBUTEROL IN Inhale 8.6 g into the lungs as needed. Active ASHLYNA 0.15-0.03 &0.01 MG tablet Take 1 tablet by mouth daily. 3 12/13/2018 Active Encounters Date Type Department Care Team Description 01/31/2025 2:41 PM CDT - 01/31/2025 11:59 PM CDT Hospital Encounter [facility] [address] [place] [address] Calvin Smith MD Discharge Disposition: Home or Self Care (Routine Discharge) 01/31/2025 Travel 12/20/2024 2:59 PM CDT - 12/20/2024 11:59 PM CDT Hospital Encounter [facility] MRI [address] [place] [address] Calvin Smith MD Discharge Disposition: Home or Self Care (Routine Discharge) 12/20/2024 Travel from Last 3 Months Social History Tobacco Use Types Packs/Day Years [...] 8:40 AM CDT Height 157.5 cm (5' 2) 04/17/2019 8:40 AM CDT Body Mass Index 27.06 04/17/2019 8:40 AM CDT Plan of Treatment Health Maintenance Due Date Last Done Comments Cervical Cancer Screening Pa p Smear (Age 30 to 64) Every 3 Years 1973 Colorectal Cancer Screening Colonoscopy (10 Years) 1973 Annual Physical 1976 Hepatitis C 1991 Hepatitis B Vaccines (1 of 3 - 19+ 3-dose series) 1992 Cervical Cancer Screening Pa p with HPV Testing (Age 30 to 64) Every 5 Years 2003 Cervical Cancer Screening wi th HPV 2003 Pneumococcal Vaccine: 50+ Years (1 of 1 - PCV) 2023 Zoster Vaccines (1 of 2) 2023 COVID-19 Vaccine (3 - 2023-2 5 season) 2024 06/22/2021, 10/28/2020 Mammogram Screening 01/06/2025 01/06/2023, 09/05/2020 DTaP, Tdap and Td Vaccines ( 2 - Td or Tdap) 01/25/2029 01/25/2019 Meningococcal B Vaccine Aged Out No l onger eligible based on patient's age to complete this topic Meningococcal Vaccine Aged Out No lonny mack eligible based on patient's age to complete this topic RSV Immunizations Under 20 Months Aged Out No longer eligible b ased on patient's age to complete this topic Procedures Procedure Name Priority Date/Time Associated Diagnosis Comments CTA HEAD+NECK Routine 01/31/2025 3:33 PM CDT Neck pain MRI CERV SPINE WO CON Routine 12/20/2024 3:50 PM CDT Neck pain from Last 3 Months Results * CTA HEAD+NECK (01/31/2025 3:33 PM CDT) Anatomical Region Laterality Modality Head, Neck Computed Tomogra phy 02/01/2025 6:28 PM CDT Impressions 02/01/2025 8:32 PM CDT IMPRESSION: 1. Patent proximal intracranial arterial vasculature. 2. No significant stenosis involving the proximal internal carotid arteries. Patent carotid and vertebral arteries throughout the course. Referred By: CALVIN SMITH Interpreted By: Hector Jon MD, 02/01/2025 6:28 PM Narrative 02/01/2025 8:32 PM CDT [place] [id number] EXAMINATION: CTA HEAD+NECK, 02/01/2025 6:28 PM TECHNIQUE: Noncontrast CT head. Computed tomographic images of the head and neck were obtained after the administration of 100 mL of Isovue-370 injected through the IV, without evidence of adverse reaction. Additional coronal and sagittal reformatted as well as maximum intensity projection images were generated. Carotid stenoses were measured according to NASCET criteria. A dose lowering technique was used for this procedure, which may include, but is not limited to, dose reduction technique, automated exposure control, the use of iterative reconstruction, and ALARA (As Low As Reasonably Achievable) / Image Gently techniques. HISTORY: Neck pain extending down of the shoulders, recent MRI, dizziness with occipital of frontal headaches for 18 years. COMPARISON: MRI cervical spine 12/20/2024 FINDINGS: CTA HEAD: The petrous and cavernous portions of the internal carotid arteries are patent. Anterior cerebral arteries are patent. Normal anterior communicating artery. The middle cerebral artery branches appear patent proximally. Codominant vertebral artery posterior circulation. The basilar artery is patent. The posterior cerebral arteries are patent. Probable right posterior communicating artery. No extra-axial fluid collection. The ventricles are normal in size. No acute intracranial hemorrhage. Basal cisterns appear normal. Orbital contents appear normal. CTA NECK: There into origin of the vertebral artery from the aortic arch. Common carotid arteries are patent. There is no significant stenosis involving the proximal internal carotid arteries. Vertebral arteries are patent throughout the course. Procedure Note Hector oJn MD - 02/01/[address] [address] EXAMINATION: CTA HEAD+NECK, 02/01/2025 6:28 PM TECHNIQUE: Noncontrast CT head. Computed tomographic images of the headand neck were obtained after the administration of 100 mL of Isovue-370injected through the IV, without evidence of adverse reaction. Additionalcoronal and sagittal reformatted as well as maximum intensity projectionimages were generated. Carotid stenoses were measured according to NASCETcriteria. A dose lowering technique was used for this procedure, which mayinclude, but is not limited to, dose reduction technique, automatedexposure control, the use of iterative reconstruction, and ALARA (As LowAs Reasonably Achievable) / Image Gently techniques. HISTORY: Neck pain extending down of the shoulders, recent MRI, dizzinesswith occipital of frontal headaches for 18 years. COMPARISON: MRI cervical spine 12/20/2024 FINDINGS: CTA HEAD: The petrous and cavernous portions of the internal carotidarteries are patent. Anterior cerebral arteries are patent. Normalanterior communicating artery. The middle cerebral artery branches appearpatent proximally. Codominant vertebral artery posterior circulation.The basilar artery is patent. The posterior cerebral arteries are patent.Probable right posterior communicating artery. No extra-axial fluid collection. The ventricles are normal in size. Noacute intracranial hemorrhage. Basal cisterns appear normal. Orbitalcontents appear normal. CTA NECK: There into origin of the vertebral artery from the aortic arch.Common carotid arteries are patent. There is no significant stenosisinvolving the proximal internal carotid arteries. Vertebral arteries arepatent throughout the course. IMPRESSION: 1. Patent proximal intracranial arterial vasculature. 2. No significant stenosis involving the proximal internal carotidarteries. Patent carotid and vertebral arteries throughout the course. Referred By: CALVIN SMITH Interpreted By: Hector Jon MD, 02/01/2025 6:28 PM us Calvin Smith MD CT Final Result * MRI CERV SPINE WO CON (12/20/2024 3:50 PM CDT) Anatomical Region Laterality Modality Spine Magnetic Resonan ce 12/23/2024 3:29 PM CDT Impressions 12/23/2024 3:33 PM CDT IMPRESSION: 1. Multilevel degenerative changes in the cervical spine contributing to varying degrees of spinal canal and foraminal stenosis, as detailed above. 2. No definite cervical cord signal abnormality identified. Referred By: CALVIN SMITH Interpreted By: Josr Richmond MD, 12/23/2024 3:29 PM Narrative 12/23/2024 3:33 [place] [address] INDICATION: Chronic neck pain EXAMINATION: MRI of the cervical spine without contrast. TECHNIQUE: Multiplanar and multisequence MRI images of the cervical spine were obtained without contrast. COMPARISON: None. FINDINGS: Straightening of the cervical lordosis. Otherwise the cervical vertebral alignment, vertebral body heights, and facet alignment are maintained. Multilevel degenerative changes are evident in the cervical spine with disc degeneration, endplate/uncovertebral osteophytes, and facet hypertrophy noted. Multilevel disc desiccation. Greatest loss of disc height at C5-C6. No definite abnormal signal identified in the cervical cord. Craniocervical junction and partially imaged posterior fossa contents are unremarkable. Imaged portions of the neck soft tissues reveal no definite acute findings. C2-C3: Facet hypertrophy. No significant canal or foraminal narrowing. C3-C4: Mild disc bulge. Uncovertebral osteophytes. Facet hypertrophy. No significant canal stenosis. Mild to moderate foraminal narrowing. C4-C5: Mild disc bulge. Uncovertebral osteophytes. Facet hypertrophy. No significant canal stenosis. Minimal foraminal narrowing. C5-C6: Disc osteophyte complex. Uncovertebral osteophytes. Facet hypertrophy. Moderate canal stenosis with partial effacement of the ventral thecal sac and flattening of the ventral cord. Severe left and moderate to severe right foraminal narrowing. C6-C7: Disc bulge. Uncovertebral osteophytes. Facet hypertrophy. No significant canal stenosis. Moderate left and mild right foraminal narrowing. C7-T1: Facet hypertrophy. No significant canal or foraminal narrowing. Procedure Note Josr Richmond MD - 12/23/2024 [place] [id number] [place] [address] INDICATION: Chronic neck pain EXAMINATION: MRI of the cervical spine without contrast. TECHNIQUE: Multiplanar and multisequence MRI images of the cervical spinewere obtained without contrast. COMPARISON: None. FINDINGS: Straightening of the cervical lordosis. Otherwise the cervical vertebralalignment, vertebral body heights, and facet alignment are maintained.Multilevel degenerative changes are evident in the cervical spine withdisc degeneration, endplate/uncovertebral osteophytes, and facethypertrophy noted. Multilevel disc desiccation. Greatest loss of discheight at C5-C6. No definite abnormal signal identified in the cervicalcord. Craniocervical junction and partially imaged posterior fossa contents areunremarkable. Imaged portions of the neck soft tissues reveal no definiteacute findings. C2-C3: Facet hypertrophy. No significant canal or foraminal narrowing. C3-C4: Mild disc bulge. Uncovertebral osteophytes. Facet hypertrophy. Nosignificant canal stenosis. Mild to moderate foraminal narrowing. C4-C5: Mild disc bulge. Uncovertebral osteophytes. Facet hypertrophy. Nosignificant canal stenosis. Minimal foraminal narrowing. C5-C6: Disc osteophyte complex. Uncovertebral osteophytes. Facethypertrophy. Moderate canal stenosis with partial effacement of theventral thecal sac and flattening of the ventral cord. Severe left andmoderate to severe right foraminal narrowing. C6-C7: Disc bulge. Uncovertebral osteophytes. Facet hypertrophy. Nosignificant canal stenosis. Moderate left and mild right foraminalnarrowing. C7-T1: Facet hypertrophy. No significant canal or foraminal narrowing. IMPRESSION: 1. Multilevel degenerative changes in the cervical spine contributing tovarying degrees of spinal canal and foraminal stenosis, as detailedabove. 2. No definite cervical cord signal abnormality identified. Referred By: CALVIN SMITH Interpreted By: Josr Richmond MD, 12/23/2024 3:29 PM Calvin Smith MD MRI Final Result from Last 3 Months Insurance [facility] Care Teams Medical Professionals Relationship Specialty Start Date End Date Leonie Moreno PA [address] [place] [address] PCP - General PHYSICIAN SUPERVISOR CONCRETE BLOCK PLANT 04/13/19
--- OUTSIDE RECORDS SUMMARY | 2025-02-07 15:41 | XMS_ITS | Encounter Summary ---
Author Organization [facility] Address [address] [place] [address] Care Team Providers Care Featheredger And Reducer Machine Name Role Phone Leonie Moreno Primary Care Provider [phone] Julio César Ribeiro MD Unavailable [phone] Encounter Details Date Type Department Care Team (Latest Contact Info) Description 02/04/2025 Results Follow-Up [facility] Family Medicine [address] [place] [address] Leonie Moreno PA [address] [place] [address] Comprehensive metabolic panel, Lipid panel, Magnesium Social History Tobacco Use Types Packs/Day Years Used Date Smoking Tobacco: Some Days Cigarettes 0.2 5.5 Started: 08/22/2019 Smokeless Tobacco: Never Alcohol Use [...] on file 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 Gender Identity Not on file Sexual Orientation Not on file 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
--- OUTSIDE RECORDS SUMMARY | 2025-02-07 15:41 | XMS_ITS | Clinical Summary ---
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
--- OUTSIDE RECORDS SUMMARY | 2025-02-07 15:41 | XMS_ITS | Referral Summary ---
Author Organization [facility] [address] Address [address] [place] [address] Care Team Providers Care Multiple Cut Off Saw Operator Name Role Phone Leonie Moreno Primary Care Provider [phone] Julio César Ribeiro MD Unavailable [phone] Encounters Date Type Department Care Team Description 02/04/2025 Results Follow-Up [facility] Medicine [address] [place] [address] [place] [phone] Leonie Moreno PA Comprehensive metabolic panel, Lipid panel, Magnesium 02/04/2025 Telephone [facility] Medicine [address] [place] [address] [place] [phone] Leonie Moreno PA Test Results 01/25/2025 Telephone [facility] Medicine [address] [place] [address] [place] [phone] Leonie Moreno PA Medical Question/Miscellaneous 12/19/2024 3:00 PM CDT Office Visit [facility] Cardiology [address] [place] [phone] Saleem Nuno MD Other chest pain (Primary Dx) 11/19/2024 Telephone [facility] Medicine [address] [place] [address] [place] [phone] Leonie Moreno PA 11/12/2024 3:30 PM CDT Office Visit [facility] Family Medicine [address] [place] [address] Leonie Moreno PA Mixed hyperlipidemia (Primary Dx); Other fatigue; 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; Gastroesophageal reflux disease without esophagitis; BMI 26.0-26.9,adult from Last 3 Months Allergies Active Allergy [...] OR SHORTNESS OF BREATH 54 g 1 05/25/20 24 Active omeprazole (PriLOSEC) 40 mg capsule TAKE 1 CAPSULE(40 MG) BY MOUTH DAILY 90 capsule 1 06/26/20 24 Active rosuvastatin (CRESTOR) 10 mg tabletIndications :Mixed hyperlipidemia Take 1 tablet (10 mg total) by mouth daily 90 tablet 02/05/20 25 Active rosuvastatin (CRESTOR) 10 mg tabletIndications :Mixed hyperlipidemia Take 1 tablet (10 mg total) by mouth daily 90 tablet 10/18/19 25 2024 Discontinued rosuvastatin (CRESTOR) 10 mg tabletIndications :Mixed hyperlipidemia TAKE 1 TABLET(10 MG) BY MOUTH DAILY 90 tablet 01/29/20 25 2024 Discontinued(R eorder) Active Problems Problem Noted Date Diagnosed Date Cigarette smoker 02/06/2024 Assessment & Plan (02/06/2024 1:01 PM CDT): Encouraged complete cessation and even socially. Other acne 06/11/2023 Assessment & Plan (06/11/2023 12:15 AM CDT): Persistent acne that may be a secondary infection at this point. Will send doxy Encouraged to stop picking at the area If symptoms worsen may consider starting topical Mixed hyperlipidemia 06/17/2022 Assessment & Plan (11/25/2024 8:26 PM CDT): Encouraged patient to follow low fat/low chol diet like the Mediterranean diet. Increase good fats in the diet. Increase exercise. Monitor labs as needed. Continue Crestor 10 Assessment & Plan (02/06/2024 1:01 PM CDT): [...] advisable. She was given information for the [facility] in [place] and advised to report there today before [...] advisable. She was given information for the [facility] in [place] and advised to report there today before [...] advisable. She was given information for the [facility] in [place] and advised to report there today before [...] advisable. She was given information for the [facility] in [place] and advised to report there today before [...] biopsy of liver 06/26/2019 Assessment & Plan (11/25/2024 8:25 PM CDT): Last sawHepatology 2022 - Dr. Murphy at [facility] for her liver adenoma's All labs had returned to normal so can just follow labs. Assessment & Plan (02/06/2024 1:01 PM CDT): Continue per hepatology at [facility] Assessment & Plan (06/11/2023 12:14 AM CDT): Continue to follow with [facility] hepatology. Assessment & Plan (04/05/2021 7:33 PM CDT): Continues to follow with hepatology annually Assessment & Plan (05/03/2020 1:16 PM CDT): Continue per specialist. Gastroesophageal reflux disease without esophagi tis 11/21/2017 Assessment & Plan (11/25/2024 8:25 PM CDT): Continue with omeprazole and Pepcid. Will continue to monitor liver enzymes. Assessment & Plan (02/06/2024 1:01 PM CDT): [...] Problem Noted Date Diagnosed Date Resolved Date Fatigue 02/06/2024 11/25/2024 Assessment & Plan (02/06/2024 1:03 PM CDT): Probably multifactorial. Check labs and followup to re-evaluate Need for vaccination 06/11/2023 024 Assessment & Plan (06/11/2023 12:14 AM CDT): Flu vaccine updated in the office BMI 24.0-24.9, adult 06/11/2023 025 Assessment & Plan (02/06/2024 1:01 PM CDT): Weight/BMI is in healthy range. Continue healthy lifestyle to maintain. Assessment & Plan (06/11/2023 12:17 AM CDT): Weight/BMI is in healthy range. Continue healthy lifestyle to maintain. Diabetes mellitus screening 01/02/2023 11/25/2024 Assessment & Plan (02/06/2024 1:01 PM CDT): Check labs Assessment & Plan (01/02/2023 9:46 PM CDT): Check labs BMI 24.0-24.9, adult 12/21/2022 023 Assessment & [...] Plan (02/11/2019 10:29 PM CDT): Check titer. Other fatigue 02/11/2019 11/25/2024 Assessment & Plan (01/02/2023 9:45 PM CDT): [...] followup to re-evaluate Annual physical exam 02/11/2019 025 Assessment & Plan (02/06/2024 1:01 PM CDT): [...] health. Reviewed immunizations Reviewed age appropirate screenings. 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 Not on file Last Filed Vital Signs Vital Sign Reading Time Taken Comments Blood Pressure 110/70 12/19/2024 2:54 PM CDT Pulse 59 12/19/2024 2:54 PM CDT Temperature 36.5 C (97.7 F) 11/12/2024 3:43 PM CDT Respiratory Rate 16 12/19/2024 2:54 PM CDT Oxygen Saturation 98% 11/12/2024 3:43 PM CDT Inhaled Oxygen Concentration - - Weight 63 kg (139 lb) 12/19/2024 2:54 PM CDT Height 157.5 cm (5' 2) 12/19/2024 2:54 PM CDT Body Mass Index 25.42 12/19/2024 2:54 PM CDT Plan of Treatment Not on file Procedures Procedure Name Priority Date/Time Associated Diagnosis Comments MAGNESIUM Routine 02/02/2025 10:37 AM CDT LIPID PANEL Routine 02/02/2025 10:37 AM CDT Mixed hyperlipidemia COMPREHENSIVE METABOLIC PANEL Routine 02/02/2025 10:37 AM CDT Mixed hyperlipidemia ELECTROCARDIOGRAM REPORT Routine 025 2:55 PM CDT Other chest pain HM MAMMOGRAPHY Routine 02/07/2024 8:33 AM CDT COLONOSCOPY Routine 03/10/2022 from Last 3 Months or Most Recently Relevant to Health Maintenance Results * Magnesium (02/02/2025 10:37 AM CDT) Magnesium 2.1 1.5 - 2.5 mg/dL [facility] 02/02/2025 10:3 7 AM CDT 02/02/2025 10:38 AM CDT Narrative [facility] - 02/03/2025 5:24 AM CDT FASTING:YES FASTING: YES Leonie CUEVAS LAB BLOOD ORDERABLES Final Result [facility] [address] [place] [address] * Lipid panel (02/02/2025 10:37 AM CDT) Cholesterol 156 <200 mg/dL [facility] HDL 76 > OR = 50 mg/dL [facility] Triglycerides 85 <150 mg/dL [facility] LDL 63 mg/dL (calc) [facility] Comment: Reference [...] LDL-C. Rob DAY et al. AJ. 2013;310(19): 3871-0021 (http://education.Etsy.AlumniFunder/faq/QJG376) Chol/HDL ratio 2.1 <5.0 (calc) [facility] Non-HDL, (LDL+VLDL) 80 <130 mg/dL (calc) [facility] Comment: For patients with diabetes plus 1 major ASCVD risk factor, treating to a non-HDL-C goal of <100 mg/dL (LDL-C of <70 mg/dL) is considered a therapeutic option. Blood 02/02/2025 10:3 7 AM CDT 02/02/2025 10:38 AM CDT Narrative [facility] - 02/03/2025 5:24 AM CDT FASTING:YES FASTING: YES Leonie CUEVAS LAB BLOOD ORDERABLES Final Result [facility] [address] [place] [address] * Comprehensive metabolic panel (02/02/2025 10:37 AM CDT) Pathologist [facility] Glucose 78 65 - 99 mg/dL [facility] Comment: Fasting reference interval BUN 13 7 - 25 mg/dL [facility] Creatinine 0.86 0.50 - 1.03 mg/dL [facility] eGFR 82 > OR = 60 mL/min/1.7 3m2 [facility] BUN/creat ratio SEE NOTE: 6 - 22 (calc) [facility] Comment: Not Reported: BUN and Creatinine are within reference range. Sodium 140 135 - 146 mmol/L [facility] Potassium, pl 4.2 3.5 - 5.3 mmol/L [facility] Chloride 105 98 - 110 mmol/L [facility] CO2 27 20 - 32 mmol/L [facility] Calcium 9.7 8.6 - 10.4 mg/dL [facility] Protein, sr 7.6 6.1 - 8.1 g/dL [facility] Albumin 4.8 3.6 - 5.1 g/dL [facility] GLOBULIN 2.8 1.9 - 3.7 g/dL (calc) [facility] Alb/glob ratio 1.7 1.0 - 2.5 (calc) [facility] Bilirubin, total 0.6 0.2 - 1.2 mg/dL [facility] Alk phos 95 37 - 153 U/L [facility] AST 19 10 - 35 U/L [facility] ALT (SGPT) 15 6 - 29 U/L [facility] Blood 02/02/2025 10:3 7 AM CDT 02/02/2025 10:38 AM CDT Narrative [facility] - 02/03/2025 5:24 AM CDT FASTING:YES FASTING: YES Leonie CUEVAS LAB BLOOD ORDERABLES Final Result [facility] [address] [place] [id number] * Electrocardiogram Report (12/19/2024 2:55 PM CDT) Saleem Nuno MD ECG ORDERABLES Final Result * HM MAMMOGRAPHY (02/07/2024 8:33 AM CDT) Mammography Normal Historical Provider HEALTH MAINTENANCE Edited Result - Final * Colonoscopy (03/10/2022) Anatomical Region Laterality Modality Other Historical Provider ENDOSCOPY PROCEDURES Lore l Result from Last 3 Months or Most Recently Relevant to Health Maintenance Insurance [facility] ON LICENSE OF [facility] Care Teams Multiple Cut Off Saw Operator Relationship Specialty Start Date End Date Leonie Moreno PA [address] [place] [address] PCP - General Internal Medicine 12/20/18 Julio César Ribeiro MD [address] [place] [address] Consulting Physician Surgical Critical Care 07/05/19
--- OUTSIDE RECORDS SUMMARY | 2025-02-07 15:41 | XMS_ITS | Clinical Summary ---
Author Organization [facility] [address] Address [address] [place] [address] Care Team Providers Care Post Tensioning Ironworker Name Role Phone Leonie Moreno Primary Care Provider [phone] Julio César Ribeiro MD Unavailable [phone] Allergies Active Allergy Reactions Criticality Noted [...] advisable. She was given information for the [facility] in [place] and advised to report there today before [...] advisable. She was given information for the [facility] in [place] and advised to report there today before [...] advisable. She was given information for the [facility] in [place] and advised to report there today before [...] advisable. She was given information for the [facility] in [place] and advised to report there today before [...] Last sawHepatology 2022 - Dr. Murphy at [facility] for her liver adenoma's All labs had returned to normal so can just follow labs. Assessment & Plan (02/06/2024 1:01 PM CDT): Continue per hepatology at [facility] Assessment & Plan (06/11/2023 12:14 AM CDT): Continue to follow with [facility] hepatology. Assessment & Plan (04/05/2021 7:33 PM [...] Department Care Team Description 02/04/2025 Results Follow-Up [address] [place] [phone] Leonie Moreno PA Comprehensive metabolic panel, Lipid panel, Magnesium 02/04/[address] [place] [phone] Leonie Moreno PA Test Results 01/25/[address] [place] [phone] Leonie Moreno PA Medical Question/Miscellaneous 12/19/2024 3:00 PM CDT Office Visit [facility] Cardiology [address] [place] [phone] Saleem Nuno MD Other chest pain (Primary Dx) 11/19/[address] [place] [phone] Leonie Moreno PA 11/12/2024 3:30 PM CDT Office Visit [address] [place] [phone] Leonie Moreno PA Mixed hyperlipidemia (Primary Dx); Other fatigue; 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; Gastroesophageal reflux disease without esophagitis; BMI 26.0-26.9,adult from Last 3 Months Immunizations Immunization Administration Dates Next Due Influenza, Quadrivalent, Spl it, Preservative Free, Intramuscular 06/01/2023,06/17/2022,05/27/2020 Influenza, Trivalent, IM (MDV) 06/17/2021 Influenza, Trivalent, Preser vative Free, Intramuscular 06/08/2024,09/22/2017 Influenza, Unspecified 09/22/2021(Deferred: Vijaya ent Refused) Tdap 01/25/2019 Surgical History Surgery Date Site/Laterality Comments CA LIG/TRNSXJ FLP TUBE ABDL/ VAG APPR UNI/BI [...] 2 Diabetes Mellit us - (Added by TW Conv) Relation Name Status Comments Father Mother [...] on file 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 Gender Identity Not on file Sexual Orientation [...] 12/19/2024 2:54 PM CDT Plan of Treatment Health Maintenance Due Date Last Done Comments Cervical Cancer Screening 1973 Hepatitis C Screening 1973 Hepatitis B Screening 1991 Pneumococcal vaccine <65 (1 of 2 - PCV) 1992 Zoster Vaccine (1 of 2) 2023 Covid-19 Vaccine (3 - 2023-2 5 season) 2024 06/22/2021, 10/28/2020 Regular Well [...] CDT) Magnesium 2.1 1.5 - 2.5 mg/dL [facility] 02/02/2025 10:3 7 AM CDT 02/02/2025 10:38 AM CDT Narrative [facility] - 02/03/2025 5:24 AM CDT FASTING:YES FASTING: YES Leonie CUEVAS LAB BLOOD ORDERABLES Final Result Performing Organization Address City/[facility]/ZIP Co de Phone Number [facility] [address] [phone] * Lipid panel (02/02/2025 10:37 AM CDT) [facility] Cholesterol 156 <200 mg/dL [facility] [...] LDL-C. Rob SS et al. AJ. 2013;310(19): 2976-7834 (http://education.CityGro/faq/VFU957) Chol/HDL ratio 2.1 <5.0 (calc) [facility] [...] BLOOD ORDERABLES Final Result Performing Organization Address City/[facility]/ZIP Co de Phone Number [facility] [address] [phone] * Comprehensive metabolic panel (02/02/2025 10:37 AM CDT) Glucose 78 65 - 99 mg/dL [facility] [...] Leonie CUEVAS LAB BLOOD ORDERABLES Final Result [facility] [id number] [facility] [place] [id number] * Electrocardiogram Report (12/19/2024 2:55 PM CDT) Saleem Nuno MD ECG ORDERABLES Final Result * HM MAMMOGRAPHY (02/07/2024 8:33 AM CDT) Mammography Normal Historical Provider HEALTH MAINTENANCE Edited Result - Final * Colonoscopy (03/10/2022) Anatomical Region Laterality Modality Other Historical Provider ENDOSCOPY PROCEDURES Lore l Result from Last 3 Months or Most Recently Relevant to Health Maintenance Insurance [facility] [employer] Care Teams Post Tensioning Ironworker Relationship Specialty Start Date End Date Leonie Moreno PA [address] [place] [address] PCP - General Internal Medicine 12/20/18 Julio César Ribeiro MD [address] [facility] [address] [place] [address] Consulting Physician Surgical Critical Care 07/05/19
--- OUTSIDE RECORDS SUMMARY | 2025-02-07 15:41 | XMS_ITS | Encounter Summary ---
Author Organization [facility] Address [address] [place] [address] Care Team Providers Care Fancy Needleworker Name Role Phone Leonie Moreno Primary Care Provider [phone] Julio César Ribeiro MD Unavailable [phone] Reason for Visit * Reason Onset Date Comments Medical Question/Miscellaneous 01/25/2025 Encounter Details Date Type Department Care Team (Late st Contact Info) Description 01/25/2025 Telephone [facility] Family Medicine [address] [place] [phone] Leonie Moreno PA [address] [place] [address] Medical Question/Miscellaneous Social History Tobacco Use Types Packs/Day Years [...] on file 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 * Telephone Encounter - Crys Cruz - 01/25/2025 9:03 AM CDT Medical Question/Miscellaneous Caller???s Concern: Pt calling to ask Leonie if she need to complete the med Crestor before she go to have lab draw or if she is to go anytime Please call pt Does message need to be routed? Yes-Action Needed documented in this encounter Plan of Treatment Not on file documented as of this encounter Visit Diagnoses Not on filedocumented in this encounter Care Teams Fancy Needleworker Relationship Specialty Start Date End Date Leonie Moreno PA [address] [place] [address] PCP - General Internal Medicine 12/20/18 Julio César Ribeiro MD [address] [place] [address] Consulting Physician Surgical Critical Care 07/05/19 documented as of this encounter
== END 2025-02-07 15:39 | disposition home or self-care (01) ==
LOC: ANHIMG 15:39
PROVIDERS: PCP Physician Assistant; Visit Provider Obstetrics & Gynecology
DX: Z12.31 Encounter for screening mammogram for malignant neoplasm of breast (principal)
CPT/HCPCS: 77063; 77067